=== PATIENT | female | born 1980 | race Caucasian/White ===

== ENCOUNTER 2017-04-26 14:35 | Observation (INO) ==
[2017-04-26] MEDS ORDERED: Lidocaine 1% 20 ML MDV ID ONE (15:44)
--- NOTE | 2017-04-26 15:47 | Emergency Department Note ---
Disposition Clinical Impression: Martha-rectal abscess Urinary tract infection Qualifiers: Urinary tract infection type: acute cystitis Hematuria presence: without hematuria Qualified Code(s): N30.00 - Acute cystitis without hematuria Disposition: Admitted As Inpatient Condition: Fair Referrals: NONE,PCP [Non-Partnered Physician] - Forms: ED Satisfaction Letter Time of Disposition: 17:39 Skin/Abscess/FB HPI Chief complaint: ED Skin/Abscess/Foreign Body Stated complaint: Abscess Time Seen by Provider: 04/26/17 15:36 Source: patient Limitations: no limitations Nursing Notes Reviewed: Yes Vital Signs Reviewed: Yes HPI Narrative: Alert and oriented and nontoxic-appearing 36-year-old female presents for evaluation of a "perirectal abscess". The patient states that the area began 5 days ago and has gradually worsened since. She states a history of multiple perirectal abscesses in the past requiring incision and drainage. She did see her primary care provider at the [facility] several days ago which prescribed her ciprofloxacin for this and directed her to use warm sitz baths for symptomatic relief. The patient states that 2 days after beginning the sitz baths, she developed dysuria, urinary urgency, and urinary frequency. She complains of being nauseated and having some subjective chills but denies any outright fevers, or vomiting. She denies any abdominal pain, blood in urine, or blood in the stool. Pt Subjective Complaint: abscess/boil Onset (ago): day(s) (5) Tetanus Up to Date: yes Location: buttocks Severity: severe Severity scale (1-10): 7 Quality: sharp Consistency: Worsening Improves with: none Worsens with: movement Associated symptoms: Reports: chills, nausea. Denies: fever, vomiting, malaise Previous Rx's Medication Instructions Recorded Ciprofloxacin [Cipro] 500 mg PO BID #14 tablet 03/12/17 Fluconazole [Diflucan] 150 mg PO DAILY #1 tab 03/12/17 predniSONE [PredniSONE] 20 mg PO BID #6 tablet 03/12/17 Allergies Allergy/AdvReac Type Severity Reaction Status Date / Time sulfamethoxazole AdvReac Hives Verified 03/12/17 18:00 [From Bactrim] trimethoprim [From Bactrim] AdvReac Hives Verified 03/12/17 18:00 All systems ED: reviewed and negative except as stated. Constitutional: Reports: as per HPI, chills. Denies: fever, weakness, weight change Eyes: Denies: eye pain, eye discharge, vision change ENT ED: Denies: ear pain, throat pain, dental pain, hearing loss, epistaxis, congestion, dysphagia Cardiovascular: Denies: chest pain, palpitations, dyspnea on exertion, edema, syncope Respiratory: Denies: cough, dyspnea, wheezes, hemoptysis, stridor Gastrointestinal: Reports: as per HPI, nausea. Denies: abdominal pain, vomiting , diarrhea, constipation, hematemesis, melena, hematochezia Genitourinary: Reports: as per HPI, urgency, dysuria, frequency. Denies: hematuria, discharge Musculoskeletal: Denies: back pain, neck pain, arthralgia, myalgia Integumentary: Reports: as per HPI, other ("Perirectal abscess"). Denies: rash , abrasion, lesions Neurological: Denies: headache, weakness, numbness, paresthesias, confusion, abnormal gait, vertigo Psychiatric: Denies: anxiety, depression, suicidal thoughts, homicidal thoughts , auditory hallucinations, visual hallucinations Endocrine: Denies: fatigue Hematological/Lymphatic: Denies: easy bleeding, easy bruising Allergic/Immunologic: Denies: facial swelling, urticaria Past Medical History - Past Medical History Attestation: Yes The following information was validated with the patient. Source: patient, nursing notes reviewed Medical history: Reports: hypertension Surgical history: Reports: other, appendectomy Psychiatric history: Reports: anxiety [employer] history: Reports: bilateral tubal ligation - Social History Smoking Status: Current every day smoker Smokeless Tobacco Status: No Alcohol use: Reports: none Drug use: Reports: none Physical Exam - General Limitations: no limitations General appearance: alert, in no apparent distress - Head Head exam: atraumatic, normocephalic, normal inspection - Eye Eye exam: Present: normal appearance, PERRL, EOMI. Absent: nystagmus - ENT ENT exam: mucous membranes moist - Neck Neck exam: Present: normal inspection, full ROM, trachea midline - Chest Chest inspection: Present: normal inspection, symmetric chest wall rise - Respiratory Respiratory exam: Present: normal lung sounds bilaterally. Absent: respiratory distress, wheezes, stridor, accessory muscle use, prolonged expiratory phase - Cardiovascular Cardiovascular exam: Present: regular rate, normal rhythm, normal heart sounds - Abdominal Exam Abdominal exam: Present: soft, Non-Tender, normal bowel sounds - Extremities Exam Extremities exam: Present: normal inspection, full ROM. Absent: tenderness, pedal edema - Back Exam Back exam: Present: normal inspection, full ROM. Absent: tenderness, CVA tenderness (R), CVA tenderness (L) - Neurological Exam Neurological exam: Present: alert, oriented X3 - Psychiatric Psychiatric exam: Present: normal affect, normal mood - Skin Skin exam: Present: warm, dry, intact, normal color, other - Expanded Skin Exam Type of lesion: Present: abscess 1 - Right-sided perirectal induration that measures approximately 2.5 cm x 2.5 cm without overlying cellulitis. No spontaneous drainage or discharge. Course Course Narrative: I have discussed this patient's case with Dr. Odell. Dr. Odell agrees with his plan. 1820: I spoke with Dr. Garvin, general surgeon teletypesetter monitor. Dr. Sosa requested patient be administered Zosyn and admitted to her service overnight with a nothing by mouth status so that she can take the patient to the OR tomorrow morning. I discussed this plan with the patient and the patient verbalizes understanding. Vital Signs Temperature 97.8 F 04/26/17 15:30 Pulse Rate 92 04/26/17 15:30 Respiratory Rate 16 04/26/17 15:30 Blood Pressure 138/95 04/26/17 15:30 O2 Sat by Pulse Oximetry 98 04/26/17 15:30 Temperature 97.8 F 04/26/17 15:30 Pulse Rate 86 04/26/17 18:03 Respiratory Rate 16 04/26/17 18:03 Blood Pressure 154/97 04/26/17 18:03 O2 Sat by Pulse Oximetry 97 04/26/17 18:03 Oxygen Delivery Oxygen Delivery Room Air Skin/Abscess/Foreign Body - Medical Records Medical records reviewed: Yes I reviewed the patient's medical records. - Lab Data Lab results reviewed: Yes I reviewed the patient's lab results. Lab results narrative: Laboratory Last Values WBC 14.9 K/mcL (4.3-11.1) H 04/26/17 16:54 RBC 4.36 M/mcL (3.82-4.97) 04/26/17 16:54 Hgb 13.8 g/dL (11.5-15.4) 04/26/17 16:54 Hct 39.4 % (35.3-44.9) 04/26/17 16:54 MCV 90.4 fL (83.0-100.0) 04/26/17 16:54 MCH 31.7 pg (28.0-33.3) 04/26/17 16:54 MCHC 35.0 g/dL (31.6-35.5) 04/26/17 16:54 RDW 13.5 % (11.5-14.5) 04/26/17 16:54 Plt Count 254 K/mcL (140-400) 04/26/17 16:54 MPV 10.4 fL (9.4-12.4) 04/26/17 16:54 Immature Gran % 0.3 % (0-4) 04/26/17 16:54 Seg Neutrophils % 71.5 % 04/26/17 16:54 Lymphocytes % 19.6 % 04/26/17 16:54 Monocytes % 6.9 % 04/26/17 16:54 Eosinophils % 1.4 % 04/26/17 16:54 Basophils % 0.3 % 04/26/17 16:54 Neutrophils # 10.6 K/mcL (1.6-8.9) H 04/26/17 16:54 Lymphocytes # 2.9 K/mcL (0.6-4.6) 04/26/17 16:54 Monocytes # 1.0 K/mcL (0.0-1.3) 04/26/17 16:54 Eosinophils # 0.2 K/mcL (0.0-0.6) 04/26/17 16:54 Basophils # 0.0 K/mcL (0.0-0.2) 04/26/17 16:54 ESR 18 mm/hr (0-15) H 04/26/17 16:54 Sodium 136 mEq/L (136-145) 04/26/17 16:54 Potassium 3.8 mEq/L (3.5-4.5) 04/26/17 16:54 Chloride 108 mEq/L (98-109) 04/26/17 16:54 Carbon Dioxide 21 mEq/L (19-29) 04/26/17 16:54 BUN 13 mg/dL (7-20) 04/26/17 16:54 Creatinine 0.73 mg/dL (0.57-1.11) 04/26/17 16:54 Est GFR ( Amer) > 60 (> 60) 04/26/17 16:54 Est GFR (Non-Af Amer) > 60 (> 60) 04/26/17 16:54 BUN/Creatinine Ratio 18 (6-26) 04/26/17 16:54 Glucose 116 mg/dL (70-99) H 04/26/17 16:54 Calculated Osmolality 283 (280-300) 04/26/17 16:54 Calcium 9.3 mg/dL (8.6-10.8) 04/26/17 16:54 C-Reactive Protein 30 mg/L (Less than 5) H 04/26/17 16:54 Urine Color Yellow (Yellow) 04/26/17 15:51 Urine Clarity Cloudy (Clear) A 04/26/17 15:51 Urine pH 6.5 pH Units (5.0-8.0) 04/26/17 15:51 Ur Specific [place] 1.023 (1.010-1.025) 04/26/17 15:51 Urine Protein Negative mg/dL (Neg-Trace) 04/26/17 15:51 Urine Glucose (UA) Normal mg/dL (Normal) 04/26/17 15:51 Urine Ketones Negative mg/dL (Negative) 04/26/17 15:51 Urine Blood Negative (Negative) 04/26/17 15:51 Urine Nitrite Negative (Negative) 04/26/17 15:51 Urine Bilirubin Negative (Negative) 04/26/17 15:51 Urine Urobilinogen Normal mg/dL (Normal) 04/26/17 15:51 Ur Leukocyte Esterase Large (Negative) H 04/26/17 15:51 Urine Microscopic RBC 5-15 per hpf (0-3) H 04/26/17 15:51 Urine Microscopic WBC TNTC per hpf (0-3) H 04/26/17 15:51 Ur Squamous Epith Cells Many per lpf (None-Few) H 04/26/17 15:51 Urine Bacteria Moderate per hpf (None-Few) H 04/26/17 15:51 Hyaline Casts None Seen per lpf (None-Few) 04/26/17 15:51 Ur Culture Indicated? YES (NO) A 04/26/17 15:51 Urine Test Negative (Negative) 04/26/17 15:51 Result diagrams: 04/26/17 16:54 04/26/17 16:54 Lab Results 04/26/17 04/26/17 04/26/17 Range/Units 15:51 15:51 16:54 WBC 14.9 H (4.3-11.1) K/mcL RBC 4.36 (3.82-4.97) M/mcL Hgb 13.8 (11.5-15.4) g/dL Hct 39.4 (35.3-44.9) % MCV 90.4 (83.0-100.0) fL MCH 31.7 (28.0-33.3) pg MCHC 35.0 (31.6-35.5) g/dL RDW 13.5 (11.5-14.5) % Plt Count 254 (140-400) K/mcL MPV 10.4 (9.4-12.4) fL Immature Gran % 0.3 (0-4) % Seg Neutrophils % 71.5 % Lymphocytes % 19.6 % Monocytes % 6.9 % Eosinophils % 1.4 % Basophils % 0.3 % Neutrophils # 10.6 H (1.6-8.9) K/mcL Lymphocytes # 2.9 (0.6-4.6) K/mcL Monocytes # 1.0 (0.0-1.3) K/mcL Eosinophils # 0.2 (0.0-0.6) K/mcL Basophils # 0.0 (0.0-0.2) K/mcL ESR (0-15) mm/hr Sodium (136-145) mEq/L Potassium (3.5-4.5) mEq/L Chloride (98-109) mEq/L Carbon Dioxide (19-29) mEq/L BUN (7-20) mg/dL Creatinine (0.57-1.11) mg/dL Est GFR ( Amer) (> 60) Est GFR (Non-Af Amer) (> 60) BUN/Creatinine Ratio (6-26) Glucose (70-99) mg/dL Calculated Osmolality (280-300) Calcium (8.6-10.8) mg/dL C-Reactive Protein (Less than 5) mg/L Urine Color Yellow (Yellow) Urine Clarity Cloudy A (Clear) Urine pH 6.5 (5.0-8.0) pH Units Ur Specific [place] 1.023 (1.010-1.025) Urine Protein Negative (Neg-Trace) mg/dL Urine Glucose (UA) Normal (Normal) mg/dL Urine Ketones Negative (Negative) mg/dL Urine Blood Negative (Negative) Urine Nitrite Negative (Negative) Urine Bilirubin Negative (Negative) Urine Urobilinogen Normal (Normal) mg/dL Ur Leukocyte Esterase Large H (Negative) Urine Microscopic RBC 5-15 H (0-3) per hpf Urine Microscopic WBC TNTC H (0-3) per hpf Ur Squamous Epith Cells Many H (None-Few) per lpf Urine Bacteria Moderate H (None-Few) per hpf Hyaline Casts None Seen (None-Few) per lpf Ur Culture Indicated? YES A (NO) Urine Test Negative (Negative) 04/26/17 04/26/17 Range/Units 16:54 16:54 WBC (4.3-11.1) K/mcL RBC (3.82-4.97) M/mcL Hgb (11.5-15.4) g/dL Hct (35.3-44.9) % MCV (83.0-100.0) fL MCH (28.0-33.3) pg MCHC (31.6-35.5) g/dL RDW (11.5-14.5) % Plt Count (140-400) K/mcL MPV (9.4-12.4) fL Immature Gran % (0-4) % Seg Neutrophils % % Lymphocytes % % Monocytes % % Eosinophils % % Basophils % % Neutrophils # (1.6-8.9) K/mcL Lymphocytes # (0.6-4.6) K/mcL Monocytes # (0.0-1.3) K/mcL Eosinophils # (0.0-0.6) K/mcL Basophils # (0.0-0.2) K/mcL ESR 18 H (0-15) mm/hr Sodium 136 (136-145) mEq/L Potassium 3.8 (3.5-4.5) mEq/L Chloride 108 (98-109) mEq/L Carbon Dioxide 21 (19-29) mEq/L BUN 13 (7-20) mg/dL Creatinine 0.73 (0.57-1.11) mg/dL Est GFR ( Amer) > 60 (> 60) Est GFR (Non-Af Amer) > 60 (> 60) BUN/Creatinine Ratio 18 (6-26) Glucose 116 H (70-99) mg/dL Calculated Osmolality 283 (280-300) Calcium 9.3 (8.6-10.8) mg/dL C-Reactive Protein 30 H (Less than 5) mg/L Urine Color (Yellow) Urine Clarity (Clear) Urine pH (5.0-8.0) pH Units Ur Specific [place] (1.010-1.025) Urine Protein (Neg-Trace) mg/dL Urine Glucose (UA) (Normal) mg/dL Urine Ketones (Negative) mg/dL Urine Blood (Negative) Urine Nitrite (Negative) Urine Bilirubin (Negative) Urine Urobilinogen (Normal) mg/dL Ur Leukocyte Esterase (Negative) Urine Microscopic RBC (0-3) per hpf Urine Microscopic WBC (0-3) per hpf Ur Squamous Epith Cells (None-Few) per lpf Urine Bacteria (None-Few) per hpf Hyaline Casts (None-Few) per lpf Ur Culture Indicated? (NO) Urine Test (Negative) - Radiology Data Radiology results reviewed: Yes I reviewed the patient's radiology results. Abdomen/Pelvis CT 04/26/17 15:52 IMPRESSION: Small right inferior perirectal/perianal abscess. D/ / Geovani Ecsobedo MD / Geovani Escobedo MD Interpreting Provider: Geovani Escobedo MD [facility] - [facility] Situation: Demographics, MOA Background: Presenting Complaint, Relevant PMH, Meds, & Allergies Assessment: Vital Signs, Course and respsone to treatment, Exam Concerns, Patient/Family Expectation, Pertinant Lab Results, Outstanding Labs Recommendation: Barrier(s) to disposition, Recommendation based on pending studies, treatments, or consults [facility].B.A.[facility] Report Given to: JUAN Roland Repor Time: 18:00
[2017-04-26 16:02] LABS: Bilirubin,Urine Negative (Negative); Blood,Urine Negative (Negative); Clarity,Urine Cloudy (Clear); Color,Urine Yellow (Yellow); Glucose,Urine (UA) Normal (Normal); Ketones,Urine Negative (Negative); Leukocyte Esterase,Urine Large (Negative); Nitrite,Urine Negative (Negative); PH,Urine 6.5 pH Units (5.0-8.0); Protein,Urine Negative (Neg-Trace); Specific Gravity,Urine 1.023 (1.010-1.025); Urobilinogen,Urine Normal (Normal)
[2017-04-26 16:04] LABS: Bacteria,Urine Moderate per hpf (None-Few); Hyaline Casts,Urine None Seen per lpf (None-Few); Squamous Epithelial Cell,Urine Many per lpf (None-Few); WBC,Urine TNTC per hpf (0-3)
[2017-04-26] MEDS ORDERED: Ondansetron 4 MG/2 ML VIAL IVP ONE (16:46)
[2017-04-26] MEDS ORDERED: *HR* Morphine 2 MG/ML SYRINGE IVP PRN (16:46)
[2017-04-26 17:04] LABS: Basophils % 0.3 %; Eosinophils # 0.2 K/mcL (0.0-0.6); Eosinophils % 1.4 %; Hematocrit 39.4 % (35.3-44.9); Hemoglobin 13.8 g/dL (11.5-15.4); Immature Granulocytes % 0.3 % (0-4); Lymphocytes # 2.9 K/mcL (0.6-4.6); Lymphocytes % 19.6 %; Mean Corpuscular Hemoglobin 31.7 pg (28.0-33.3); Mean Corpuscular Volume 90.4 fL (83.0-100.0); Mean Platelet Volume 10.4 fL (9.4-12.4); Monocytes % 6.9 %; Neutrophils # 10.6 K/mcL (1.6-8.9); Platelet Count 254 K/mcL (140-400); Red Blood Count 4.36 M/mcL (3.82-4.97); Red Cell Distribution Width 13.5 % (11.5-14.5); Segmented Neutrophils % 71.5 %
[2017-04-26 17:15] LABS: BUN/Creatinine Ratio 18 (6-26); Blood Urea Nitrogen 13 mg/dL (7-20); C-Reactive Protein 30 mg/L (Less than 5); Calcium 9.3 mg/dL (8.6-10.8); Carbon Dioxide 21 mEq/L (19-29); Chloride 108 mEq/L (98-109); Glucose 116 mg/dL (70-99); Osmolality,Calculated 283 (280-300); Potassium 3.8 mEq/L (3.5-4.5); Sodium 136 mEq/L (136-145); eGFR For African Americans > 60 (> 60); eGFR For Non-African Americans > 60 (> 60)
[2017-04-26] MEDS ORDERED: *HR* HYDROmorphone (PF) 1 MG/ML SYRINGE IVP ONE (17:54)
[2017-04-26] MEDS ORDERED: Piperacillin/Tazobactam 3.375 GM in D5% in Water (Mini-Bag+) 100 ML IVPB ONE (18:17)
[2017-04-26] MEDS ORDERED: Naloxone 0.4 MG/ML INJ IVP PRN (19:12)
[2017-04-26] MEDS ORDERED: Ondansetron 4 MG/2 ML VIAL IVP PRN (19:12)
[2017-04-26] MEDS ORDERED: *HR* Promethazine 25 MG/ML VIAL IVP PRN (19:12)
[2017-04-26] MEDS ORDERED: *HR* Metoprolol 5 MG/5 ML VIAL IVP PRN (19:12)
[2017-04-26] MEDS: *HR* OxyCODONE/APAP 5/325 TABLET PO PRN (22:30)
[2017-04-26] MEDS: 0.9 % Sodium Chloride 1,000 ML IVC SCH (22:31)
[2017-04-26] MEDS: Piperacillin/Tazobactam 3.375 GM in D5% in Water (Mini-Bag+) 100 ML IVPB SCH (23:42)
[2017-04-26] MEDS: *HR* HYDROmorphone (PF) 1 MG/ML SYRINGE IVP PRN (23:44)
[2017-04-27] MEDS: *HR* HYDROmorphone (PF) 1 MG/ML SYRINGE IVP PRN ×5 (04:57→22:31)
[2017-04-27 04:59] LABS: Basophils % 0.3 %; Eosinophils # 0.2 K/mcL (0.0-0.6); Eosinophils % 1.6 %; Hematocrit 34.7 % (35.3-44.9); Immature Granulocytes % 0.2 % (0-4); Lymphocytes # 2.8 K/mcL (0.6-4.6); Lymphocytes % 22.7 %; Mean Corpuscular HGB Conc 34.3 g/dL (31.6-35.5); Mean Corpuscular Hemoglobin 31.4 pg (28.0-33.3); Mean Corpuscular Volume 91.6 fL (83.0-100.0); Mean Platelet Volume 10.6 fL (9.4-12.4); Monocytes # 0.9 K/mcL (0.0-1.3); Monocytes % 7.3 %; Neutrophils # 8.2 K/mcL (1.6-8.9); Platelet Count 228 K/mcL (140-400); Red Blood Count 3.79 M/mcL (3.82-4.97); Red Cell Distribution Width 13.6 % (11.5-14.5); Segmented Neutrophils % 67.9 %
[2017-04-27 05:02] LABS: BUN/Creatinine Ratio 16 (6-26); Blood Urea Nitrogen 11 mg/dL (7-20); Calcium 8.5 mg/dL (8.6-10.8); Carbon Dioxide 23 mEq/L (19-29); Chloride 109 mEq/L (98-109); Glucose 123 mg/dL (70-99); Hemoglobin 11.9 g/dL (11.5-15.4); Osmolality,Calculated 289 (280-300); Potassium 3.8 mEq/L (3.5-4.5); Sodium 139 mEq/L (136-145); eGFR For African Americans > 60 (> 60); eGFR For Non-African Americans > 60 (> 60)
[2017-04-27] MEDS: *HR* OxyCODONE/APAP 5/325 TABLET PO PRN ×2 (05:56→21:05)
--- NOTE | 2017-04-27 09:10 | General Surg History&Physical ---
<Ramesh Reeves - Last Filed: 04/27/17 12:32> Date of Encounter: 04/27/17 Time of Encounter: 08:30 Assessment and Plan (1) Martha-rectal abscess Current Visit: Yes Status: Acute 36 yo F with history of multiple episodes of perianal abscess, HTN, hyperlipidemia, obesity, presented for right perianal abscess. Scheduled for add-on for Incision and Drainage this evening with Dr. Sosa. Continue NPO. Supportive care. Pain management. PPI for nausea and vomiting. Continue Zosyn for prophylaxis. Monitor with a.m. labs. The assessment and plan as outlined above was discussed with the patient and/or family members who expressed understanding and agreement. All questions were answered. (2) Urinary tract infection Current Visit: Yes Status: Acute UA is cloudy, + leukocyte esterase. Pending urine culture. The assessment and plan as outlined above was discussed with the patient and/or family members who expressed understanding and agreement. All questions were answered. Qualifiers: Urinary tract infection type: acute cystitis Hematuria presence: without hematuria Qualified Code(s): N30.00 - Acute cystitis without hematuria (3) Leukocytosis Current Visit: Yes Status: Acute WBC trending down: 12.1 < 14.9 Leukocytosis is most-likely due to urinary tract infection. Urine Culture pending. Continue to monitor with a.m. labs Qualifiers: Qualified Code(s): D72.829 - Elevated white blood cell count, unspecified History of Present Illness Chief complaint: Right perianal abscess HPI: Ms. Chew is a 36 year old female with PMH of HTN, Hyperlipidemia, depression, and history of multiple perianal abscess, surgical history of emergent appendectomy and bilateral tubal ligation presented yesterday evening with right perianal abscess x 5 days. She first noticed the abscess 5 days ago and went to her PCP, which prescribed her ciprofloxacin and sitz baths. She reports increasing urinary urgency and dysuria with the treatment without symptomatic relief. She came to the emergency due to nausea and chills, but reports no vomiting or fever. Patient reports that the abscess has gradually grown in size since Monday. Two days after starting sitz baths, she developed dysuria, urinary urgency, and urinary frequency. CT abdomen reveals small right inferior perirectal/perianal abscess. Urinalysis indicates UTI; urine culture is pending. Her vital signs are normal and stable, but patient has leukocytosis with WBC 12.1 < 14.9. She is currently on Zosyn day#1. The patient is scheduled for incision and drainage by Dr. Sosa this evening. Past Med Surg Social Fam HX - Past Medical History Medical history: hypertension Psychiatric history: anxiety - Past Surgical History Surgical History: appendectomy, HONEY/BSO - Social History Smoking Status: Current every day smoker Packs per day: 1 Smokeless Tobacco Status: No Alcohol use: none Drug use: none Medications and Allergies No Known Home Drugs 04/26/17 [History] 3 Allergy/AdvReac Type Severity Reaction Status Date / Time sulfamethoxazole AdvReac Hives Verified 03/12/17 18:00 [From Bactrim] trimethoprim [From Bactrim] AdvReac Hives Verified 03/12/17 18:00 Review of Systems All systems PM: A 10-system review of systems was performed and is negative for pertinent findings except as documented above in the HPI. - Constitutional no anorexia, no chills - EENT Nose, mouth and throat: no dizziness, no sore throat - Cardiovascular no chest pain, no diaphoresis, no dyspnea, no edema, no palpitations, no radiating pain - Gastrointestinal nausea, no abdominal pain, no bloating, no change in bowel habits, no constipation, no hematochezia, no loose stools, no melena, no vomiting - Genitourinary Genitourinary: no difficulty voiding, no hematuria - Musculoskeletal no numbness, no tingling - Neurological no dizziness, no memory loss, no numbness, no paresthesias, no weakness - Psychiatric no confusion, no memory loss - Endocrine no fatigue, no palpitations - Hematologic/Lymphatic no easy bleeding, no easy bruising General Surgery Exam Initial Vital Signs Temp Pulse Resp BP Pulse Ox 97.8 F 92 16 138/95 98 04/26/17 15:30 04/26/17 15:30 04/26/17 15:30 04/26/17 15:30 04/26/17 15:30 - General physical appearance well developed, well nourished, no distress - Eyes normal ocular movement - ENT atraumatic, normocephalic, CN 2-12 grossly intact - Neck no masses, trachea midline - Respiratory normal expansion, normal respiratory effort, clear to auscultation - Cardiovascular Cardiovascular exam: Present: RRR, no murmurs/rubs/gallops - Abdomen Abdomen general surgery: Present: bowel sounds present, soft, non tender - Integumentary Integumentary general surgery: Present: warm and dry, no abnormal pigmentation - Neurologic Present: CN 2-12 grossly intact, normal coordination, normal sensation - Musculoskeletal Present: normal posture - Psychiatric Psychiatric general surgery: Present: speech is normal, memory intact Results - Labs 04/27/17 03:58 04/27/17 03:58 Abnormal lab results WBC 12.1 K/mcL (4.3-11.1) H 04/27/17 03:58 RBC 3.79 M/mcL (3.82-4.97) L 04/27/17 03:58 Hct 34.7 % (35.3-44.9) L 04/27/17 03:58 ESR 18 mm/hr (0-15) H 04/26/17 16:54 Glucose 123 mg/dL (70-99) H 04/27/17 03:58 Calcium 8.5 mg/dL (8.6-10.8) L 04/27/17 03:58 C-Reactive Protein 30 mg/L (Less than 5) H 04/26/17 16:54 Urine Clarity Cloudy (Clear) A 04/26/17 15:51 Ur Leukocyte Esterase Large (Negative) H 04/26/17 15:51 Urine Microscopic RBC 5-15 per hpf (0-3) H 04/26/17 15:51 Urine Microscopic WBC TNTC per hpf (0-3) H 04/26/17 15:51 Ur Squamous Epith Cells Many per lpf (None-Few) H 04/26/17 15:51 Urine Bacteria Moderate per hpf (None-Few) H 04/26/17 15:51 Ur Culture Indicated? YES (NO) A 04/26/17 15:51 Diabetes panel 04/27/17 Range/Units 03:58 Sodium 139 (136-145) mEq/L Potassium 3.8 (3.5-4.5) mEq/L Chloride 109 (98-109) mEq/L Carbon Dioxide 23 (19-29) mEq/L BUN 11 (7-20) mg/dL Creatinine 0.69 (0.57-1.11) mg/dL Glucose 123 H (70-99) mg/dL Calcium 8.5 L (8.6-10.8) mg/dL Calcium panel 04/27/17 Range/Units 03:58 Calcium 8.5 L (8.6-10.8) mg/dL Pituitary panel 04/27/17 Range/Units 03:58 Sodium 139 (136-145) mEq/L Potassium 3.8 (3.5-4.5) mEq/L Chloride 109 (98-109) mEq/L Carbon Dioxide 23 (19-29) mEq/L BUN 11 (7-20) mg/dL Creatinine 0.69 (0.57-1.11) mg/dL Glucose 123 H (70-99) mg/dL Calcium 8.5 L (8.6-10.8) mg/dL Adrenal panel 04/27/17 Range/Units 03:58 Sodium 139 (136-145) mEq/L Potassium 3.8 (3.5-4.5) mEq/L Chloride 109 (98-109) mEq/L Carbon Dioxide 23 (19-29) mEq/L BUN 11 (7-20) mg/dL Creatinine 0.69 (0.57-1.11) mg/dL Glucose 123 H (70-99) mg/dL Calcium 8.5 L (8.6-10.8) mg/dL All other labs normal. <Angelia Sosa - Last Filed: 04/27/17 16:12> Date of Encounter: 04/27/17 Assessment and Plan (1) Martha-rectal abscess Current Visit: Yes Status: Acute The assessment and plan as outlined above was discussed with the patient and/or family members who expressed understanding and agreement. All questions were answered. discussed with patient that we will plan Incision and drainage of the area in the OR, continue abx npo ivf hydration prn pain control (2) Urinary tract infection Current Visit: Yes Status: Acute The assessment and plan as outlined above was discussed with the patient and/or family members who expressed understanding and agreement. All questions were answered. continue zosyn, culture pending Qualifiers: Urinary tract infection type: acute cystitis Hematuria presence: without hematuria Qualified Code(s): N30.00 - Acute cystitis without hematuria (3) Leukocytosis Current Visit: Yes Status: Acute The assessment and plan as outlined above was discussed with the patient and/or family members who expressed understanding and agreement. All questions were answered. trend wbc, continue abx Qualifiers: Leukocytosis type: unspecified Qualified Code(s): D72.829 - Elevated white blood cell count, unspecified (4) HTN (hypertension) Current Visit: Yes Status: Chronic The assessment and plan as outlined above was discussed with the patient and/or family members who expressed understanding and agreement. All questions were answered. on scheduled lopressor, continue. normotensive Qualifiers: Hypertension type: essential hypertension Qualified Code(s): I10 - Essential (primary) hypertension History of Present Illness HPI: Ms. Chew is a 36 year old female with a longstanding history of previous perirectal abscesses and I/D's. She started having symptoms ~5 days ago with pain and swelling. She tried sitz baths and po abx - cipro. Area slowly enlarging over time. She is complaining of swelling of the right gluteal area which started last night. She has had multiple episodes of perirectal abscesses she thinks are always on the right side. She has had multiple I/D's by ER's or the area with open on its own after sitz baths and spontaneously drain. She is complaining of right groin pain as well. Past Med Surg Social Fam HX - Past Medical History Source: patient Medical history: hyperlipidemia, hypertension, other Psychiatric history: anxiety (multiple perirectal abscesses), depression - Past Surgical History Surgical History: other (hx cardiac cath) Review of Systems All systems PM: reviewed and no additional remarkable complaints except as stated All systems PM: A 10-system review of systems was performed and is negative for pertinent findings except as documented above in the HPI. General Surgery Exam Initial Vital Signs Temp Pulse Resp BP Pulse Ox 97.8 F 92 16 138/95 98 04/26/17 15:30 04/26/17 15:30 04/26/17 15:30 04/26/17 15:30 04/26/17 15:30 - General physical appearance well developed, well nourished, no distress - Eyes PERRL, normal ocular movement - ENT normal mucosa, normocephalic - Neck trachea midline - Respiratory normal expansion, normal respiratory effort - Cardiovascular Cardiovascular exam: Present: RRR - Rectum Rectum: Present: other (right buttock edematous and slightly erythematous, no obvious area of fluctuance at right perianal area, is exquisitely tender) - Neurologic Present: CN 2-12 grossly intact, normal coordination - Musculoskeletal Present: normal posture - Psychiatric Psychiatric general surgery: Present: A&Ox3, speech is normal Results - Labs 04/27/17 03:58 04/27/17 03:58 Abnormal lab results WBC 12.1 K/mcL (4.3-11.1) H 04/27/17 03:58 RBC 3.79 M/mcL (3.82-4.97) L 04/27/17 03:58 Hct 34.7 % (35.3-44.9) L 04/27/17 03:58 ESR 18 mm/hr (0-15) H 04/26/17 16:54 Glucose 123 mg/dL (70-99) H 04/27/17 03:58 POC Glucose 127 (58-89) H 04/27/17 12:16 Calcium 8.5 mg/dL (8.6-10.8) L 04/27/17 03:58 C-Reactive Protein 30 mg/L (Less than 5) H 04/26/17 16:54 Urine Clarity Cloudy (Clear) A 04/26/17 15:51 Ur Leukocyte Esterase Large (Negative) H 04/26/17 15:51 Urine Microscopic RBC 5-15 per hpf (0-3) H 04/26/17 15:51 Urine Microscopic WBC TNTC per hpf (0-3) H 04/26/17 15:51 Ur Squamous Epith Cells Many per lpf (None-Few) H 04/26/17 15:51 Urine Bacteria Moderate per hpf (None-Few) H 04/26/17 15:51 Ur Culture Indicated? YES (NO) A 04/26/17 15:51 Diabetes panel 04/27/17 Range/Units 03:58 Sodium 139 (136-145) mEq/L Potassium 3.8 (3.5-4.5) mEq/L Chloride 109 (98-109) mEq/L Carbon Dioxide 23 (19-29) mEq/L BUN 11 (7-20) mg/dL Creatinine 0.69 (0.57-1.11) mg/dL Glucose 123 H (70-99) mg/dL Calcium 8.5 L (8.6-10.8) mg/dL Calcium panel 04/27/17 Range/Units 03:58 Calcium 8.5 L (8.6-10.8) mg/dL Pituitary panel 04/27/17 Range/Units 03:58 Sodium 139 (136-145) mEq/L Potassium 3.8 (3.5-4.5) mEq/L Chloride 109 (98-109) mEq/L Carbon Dioxide 23 (19-29) mEq/L BUN 11 (7-20) mg/dL Creatinine 0.69 (0.57-1.11) mg/dL Glucose 123 H (70-99) mg/dL Calcium 8.5 L (8.6-10.8) mg/dL Adrenal panel 04/27/17 Range/Units 03:58 Sodium 139 (136-145) mEq/L Potassium 3.8 (3.5-4.5) mEq/L Chloride 109 (98-109) mEq/L Carbon Dioxide 23 (19-29) mEq/L BUN 11 (7-20) mg/dL Creatinine 0.69 (0.57-1.11) mg/dL Glucose 123 H (70-99) mg/dL Calcium 8.5 L (8.6-10.8) mg/dL All other labs normal. - Imaging CT scan - pelvis: report reviewed, image reviewed - Attending Attestation I examined this patient and my medical decision-making was reviewed with the Resident Physician. I agree with the documented findings, disposition and treatment plan as described except to the extent set forth below.
[2017-04-27] MEDS: Piperacillin/Tazobactam 3.375 GM in D5% in Water (Mini-Bag+) 100 ML IVPB SCH ×2 (10:07→17:40)
[2017-04-27] MEDS: 0.9 % Sodium Chloride 1,000 ML IVC SCH ×3 (10:08→21:06)
[2017-04-27] MEDS: Ipratropium/Albuterol Neb 3 ML IH SCH ×3 (11:19→15:47)
--- NOTE | 2017-04-27 15:59 | Anesthesia Evaluation PreOp ---
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 Significant HX Other Medical History: GERD Anesthesia History: No Prior Anesthetic Complications, Past Anesthesia Alcohol Use: none Drug use: none Medications and Allergies No Known Home Drugs 04/26/17 [History] 3 Allergy/AdvReac Type Severity Reaction Status Date / Time sulfamethoxazole AdvReac Hives Verified 03/12/17 18:00 [From Bactrim] trimethoprim [From Bactrim] AdvReac Hives Verified 03/12/17 18:00 - Meds/Allergy Pre-op Review Medications Reviewed: Yes Allergies Reviewed: Yes Beta Blockers on Current Med List: Yes If Beta Blockers taken, Date/Time (Last Dose taken): stopped 2 weeks ago Anesthesia Results - Labs 04/27/17 03:58 04/27/17 03:58 Laboratory Tests 10/24/16 21:11 PT 10.8 INR 1.0 APTT 29.9 Laboratory Tests 04/26/17 15:51 Urine Test Negative - Imaging EKG: report reviewed (10/24/2016 SINUS RHYTHM LOW QRS VOLTAGE IN PRECORDIAL LEADS ) Anesthesia Exam Vital Signs/O2 Sat, Most Current Temp Pulse Resp BP Pulse Ox 98.3 F 72 20 118/73 96 04/27/17 15:29 04/27/17 15:29 04/27/17 15:29 04/27/17 15:29 04/27/17 15:29 Height: 5'6''/1.68 m Weight: 199 lbs/90.3 kg NPO (# of Hours): 8 Pain Scale: 7 Pain Scale Used: Numeric (1 - 10) - HEENT Pupil (Motor): EOMI Mallampati: II Teeth: Normal (broken left lower molar) Oral Opening: Greater than 3 - TELEPHONE INTERCEPTOR OPERATOR LOC: Oriented TELEPHONE INTERCEPTOR OPERATOR Motor: Normal RUE, Normal LUE, Normal RLE, Normal LLE, Normal Face TELEPHONE INTERCEPTOR OPERATOR Sensory: Normal: RUE, LUE, RLE, LLE, Face - Cardiac Rhythm: Regular Murmur: None - Pulmonary Breath Sounds: bilateral Clear Respiratory Effort: Symmetrical Anesthesia Assess/Plan ASA Score: 2 Modified [place] Scale for Level of Consciousness: Cooperative, oriented, and tranquil Anesthetic Plan: General Monitoring Plan: Standard Monitors Recovery Plan: PACU
[2017-04-27] MEDS ORDERED: Lidocaine -MPF 2% 2 ML VIAL ONE (16:11)
[2017-04-27] MEDS ORDERED: Dexamethasone 4 MG/ML VIAL ONE (16:11)
[2017-04-27] MEDS ORDERED: *HR* Succinylcholine 200 MG/10 ML VIAL IVP ONE (16:11)
[2017-04-27] MEDS ORDERED: *HR* FentaNYL (PF) 100 MCG/2 ML VIAL ONE (16:11)
[2017-04-27] MEDS ORDERED: Ondansetron 4 MG/2 ML VIAL ONE (16:11)
[2017-04-27] MEDS ORDERED: Lidocaine -MPF 4% 5 ML AMPUL ONE (16:11)
[2017-04-27] MEDS ORDERED: *HR* Midazolam HCl 2 MG/2 ML VIAL ONE ×2 (16:11→16:38)
[2017-04-27] MEDS ORDERED: *HR* Propofol 200 MG/20 ML VIAL IVP ONE (16:11)
[2017-04-27] MEDS ORDERED: *HR* Labetalol 20 MG/4 ML SYRINGE IVP PRN (16:15)
[2017-04-27] MEDS ORDERED: *HR* HYDROmorphone (PF) 1 MG/ML SYRINGE IVP PRN (16:15)
[2017-04-27] MEDS ORDERED: Ondansetron 4 MG/2 ML VIAL IVP ONE (16:15)
[2017-04-27] MEDS ORDERED: *HR* Promethazine 25 MG/ML VIAL IVP PRN ×2 (16:15→18:05)
[2017-04-27] MEDS ORDERED: Dexamethasone 4 MG/ML VIAL IVP ONE (16:15)
[2017-04-27] MEDS ORDERED: Ketorolac 15 MG/ML VIAL IVP ONE (16:15)
[2017-04-27] MEDS ORDERED: Lidocaine Jelly 2% 30 ML JEL..ML. ONE (16:26)
--- NOTE | 2017-04-27 17:19 | Operative Note ---
Date of procedure: 04/27/17 Pre-op diagnosis: right perirectal abscess Post-op diagnosis: same Procedure: Incision and drainage right perirectal abscess Complications: none immediate Anesthesia: GETA, local Local Anesthetics: 0.5% Sensorcaine HCL SubQ (cc) (11) Surgeon: Angelia Sosa Estimated blood loss (cc): 4 Specimen: anaerobic/aerobic cultures Condition: stable Disposition: PACU Procedure in Detail: Patient was brought to the operating suite on the transport cart. Sign in was performed and everyone was in agreement. Anesthesia was induced and patient was endotracheally intubated by anesthesia without incident while on transport cart. Patient was then placed prone on the operating table with all pressure points padded by pillows and foam. The bed was flexed. Bilateral buttocks were secured with 2 inch silk tape intake been. The perianal area and bilateral buttock were prepped and draped in the usual sterile fashion with Betadine. Timeout was performed again everyone was in agreement. Digital rectal exam revealed no palpable masses in the anal canal. There was an area of fluctuance at the site of previous scars from previous 90s. Using a 5 mL syringe and a 19-gauge needle the area was aspirated and pus resulted. Aerobic and anaerobic cultures were obtained. Using an 11 blade an elliptical incision through the skin into the subcutaneous tissue was made, into the abscess cavity. Sterile Q-tips were used to break up any loculations within the cavity. The abscess cavity was irrigated with sterile saline. The wound was packed with quarter inch plain packing. 4 x 4 gauze and Medipore tape were applied as a dressing. Patient tolerated the procedure well. All lap and ensuring counts are correct the case. Patient was then placed supine on the transport cart. She was awoken by anesthesia and extubated in the OR without incident. She was taken to PACU in stable condition.
--- NOTE | 2017-04-27 18:00 | Anesthesia Evaluation Post Op ---
Date of Encounter: 04/27/17 Time of Encounter: 18:00 - Vital Signs Vital Signs: Vital Signs/O2 Sat, Most Current Temp Pulse Resp BP Pulse Ox 97.6 F 84 16 120/84 98 04/27/17 17:30 04/27/17 17:40 04/27/17 17:40 04/27/17 17:40 04/27/17 17:40 - Lungs Lungs: Clear Ascult./Percussion - Airway Airway: Non-obstructed - Cardiovascular Regular Rate - Mental Status Mental Status: Alert & Oriented, Answers Appropriately - Pain Pain Scale: 0 Pain Scale used: Numeric (1 - 10) - Nausea Vomiting Nausea Vomiting: Not Present - Hydration Hydration: Ice chips, Able to void - Discharge PostOp Status: Transfer Patient to floor
[2017-04-27] MEDS ORDERED: *HR* Metoprolol 5 MG/5 ML VIAL IVP PRN (18:05)
[2017-04-27] MEDS ORDERED: Ondansetron 4 MG/2 ML VIAL IVP PRN (18:05)
[2017-04-27] MEDS ORDERED: Naloxone 0.4 MG/ML INJ IVP PRN (18:05)
[2017-04-27] MEDS ORDERED: Nicotine 2 MG GUM BC PRN (18:24)
[2017-04-28] MEDS: Piperacillin/Tazobactam 3.375 GM in D5% in Water (Mini-Bag+) 100 ML IVPB SCH ×2 (00:12→08:00)
[2017-04-28] MEDS: *HR* HYDROmorphone (PF) 1 MG/ML SYRINGE IVP PRN ×2 (02:54→10:26)
[2017-04-28 03:08] LABS: Basophils % 0.2 %; Hematocrit 34.8 % (35.3-44.9); Hemoglobin 11.8 g/dL (11.5-15.4); Immature Granulocytes % 0.5 % (0-4); Lymphocytes # 0.8 K/mcL (0.6-4.6); Lymphocytes % 6.3 %; Mean Corpuscular HGB Conc 33.9 g/dL (31.6-35.5); Mean Corpuscular Hemoglobin 31.5 pg (28.0-33.3); Mean Corpuscular Volume 92.8 fL (83.0-100.0); Mean Platelet Volume 10.8 fL (9.4-12.4); Monocytes # 0.1 K/mcL (0.0-1.3); Monocytes % 0.9 %; Neutrophils # 11.9 K/mcL (1.6-8.9); Platelet Count 247 K/mcL (140-400); Red Blood Count 3.75 M/mcL (3.82-4.97); Red Cell Distribution Width 13.4 % (11.5-14.5); Segmented Neutrophils % 92.1 %
[2017-04-28 03:29] LABS: BUN/Creatinine Ratio 11 (6-26); Blood Urea Nitrogen 10 mg/dL (7-20); Carbon Dioxide 22 mEq/L (19-29); Chloride 108 mEq/L (98-109); Glucose 303 mg/dL (70-99); Osmolality,Calculated 296 (280-300); Potassium 4.6 mEq/L (3.5-4.5); Sodium 138 mEq/L (136-145); eGFR For African Americans > 60 (> 60); eGFR For Non-African Americans > 60 (> 60)
[2017-04-28] MEDS: 0.9 % Sodium Chloride 1,000 ML IVC SCH (08:01)
[2017-04-28] MEDS: *HR* OxyCODONE/APAP 5/325 TABLET PO PRN (08:02)
[2017-04-28 10:42] VITALS: BP 114/79
--- NOTE | 2017-04-28 10:48 | Discharge Summary ---
Date of Encounter: 04/28/17 Time of Encounter: 10:30 - Discharge Diagnosis (1) Cherry-rectal abscess Priority: Primary Status: Acute (2) Urinary tract infection Priority: Secondary Status: Acute Qualifiers: Urinary tract infection type: acute cystitis Hematuria presence: without hematuria Qualified Code(s): N30.00 - Acute cystitis without hematuria - Discharge Medications Prescriptions: Ciprofloxacin [Cipro] 500 mg PO BID #14 tablet Docusate Sodium [Colace] 100 mg PO BID PRN #30 capsule PRN Reason: Constipation HYDROcodone/Acet 5/325 mg [Gary 5-325 mg] 1 tab PO Q6H PRN #21 tab PRN Reason: Breakthrough Pain Ibuprofen 800 mg PO Q8H PRN #30 tablet PRN Reason: Pain metroNIDAZOLE [Flagyl] 500 mg PO BID #14 tablet Home Medications: Ciprofloxacin [Cipro] 500 mg PO BID #14 tablet 04/28/17 [Rx] Docusate Sodium [Colace] 100 mg PO BID PRN #30 capsule 04/28/17 [Rx] HYDROcodone/Acet 5/325 mg [Gary 5-325 mg] 1 tab PO Q6H PRN #21 tab 04/28/17 [Rx ] Ibuprofen 800 mg PO Q8H PRN #30 tablet 04/28/17 [Rx] metroNIDAZOLE [Flagyl] 500 mg PO BID #14 tablet 04/28/17 [Rx] Allergies/Adverse Reactions: 3 Allergy/AdvReac Type Severity Reaction Status Date / Time sulfamethoxazole AdvReac Hives Verified 03/12/17 18:00 [From Bactrim] trimethoprim [From Bactrim] AdvReac Hives Verified 03/12/17 18:00 General Surgery Exam Initial Vital Signs Temp Pulse Resp BP Pulse Ox 97.8 F 92 16 138/95 98 04/26/17 15:30 04/26/17 15:30 04/26/17 15:30 04/26/17 15:30 04/26/17 15:30 - General physical appearance well developed, well nourished, no distress - ENT normal mucosa, atraumatic, normocephalic - Neck trachea midline - Respiratory normal expansion, normal respiratory effort, clear to percussion, clear to auscultation - Cardiovascular Cardiovascular exam: Present: RRR, 15, 16 - Abdomen Abdomen general surgery: Present: bowel sounds present, soft, non tender - Incision Incision: Present: open (Surgical packing was removed. No purulent drainage noted. Repacked with 1/4 inch playing gauze and covered with a dry dressing) - Genitourinary Present: normal external genitalia, other (She reports feelings of itchiness in the bilateral groin folds. No evidence of Candidus noted) - Rectum Rectum: Present: no bleeding, other (See incision note above) - Integumentary Integumentary general surgery: Present: warm and dry, no abnormal pigmentation - Neurologic Present: CN 2-12 grossly intact, normal coordination, normal sensation - Musculoskeletal Present: normal gait, normal posture - Psychiatric Psychiatric general surgery: Present: appropriate, oriented to person, oriented to place, oriented to time, speech is normal, memory intact Date of admission: 04/26/17 19:00 Primary care physician: Irais Soto CNP Discharging clinician: nAgelia Olivo) - Patient Status Disposition: Home, Self-Care Condition: Fair Overall status at discharge: patient is back to baseline - Discharge Instructions Follow Up With: Irais Soto CNP [Primary Care Provider] - Angelia Sosa MD [Partnered Physician] - 05/03/17 11:05 am (May 03 at 11:05 AM) Additional Instructions: Beginning on 04/29/2017, removed dressing, remove packing, shower and then complete sitz bath soaks 4 times daily and after bowel movements. Smoking cessation is strongly encouraged as this inhibits wound healing as previously discussed. Take stool softener's while on narcotics. Take ibuprofen every 8 hours as needed for discomfort. You may take hydrocodone with acetaminophen for breakthrough pain. Do not take any extra Tylenol while taking hydrocodone with acetaminophen. Report any increase or changes in drainage, fevers, chills, or increased discomfort. Take Cipro and Flagyl twice-daily as directed. Do not drink alcohol while taking Flagyl order for 3 days after completion of Flagyl. - Diet and Activity Activity: increase activity as tolerated, resume usual activities as tolerated Diet: advance to your usual diet - Hospital Course Hospital course: Ms. Chew is a 36 year old female who presented to the emergency department on 04/26/2017 with complaints of recurrent cherry-rectal. She reports she had attempted to soak multiple times in sitz bath but had no relief. She denies fevers or chills. She denied changes in bowel habits. She was examined at bedside and no areas of fluctuance were noted amenable to a bedside I&D. She was taken to the operating room on 04/27/[address] Sosa where she underwent an incision and drainage of the Cherry-rectal abscess. Her digital rectal exam at that time did not indicate any masses or abscesses within the rectal cavity. A moderate amount of related material was retrieved during her incision and drainage and set for cultures which have not been resulted at this time. She is tolerating a regular diet, emulating without difficulty, voiding, and requests dispo. We will begin discharge planning. She will be discharged on Cipro and Flagyl twice-daily as she has an allergy to Bactrim. We will provide her with discomfort management including ibuprofen 800 mg Q8 hours and hydrocodone with acetaminophen for breakthrough pain. She is further recommended to follow-up as an outpatient with Dr. Sosa for consideration of an outpatient colonoscopy. Time spent discussing smoking cessation with patient: 3 to 10 minutes - Time Spent with Patient Total time spent providing and/or coordinating discharge services: Greater than 30 minutes Labs on day of discharge: Labs from last 24 hours 04/28/17 04/28/17 04/27/17 02:35 02:35 12:16 WBC 12.9 H RBC 3.75 L Hgb 11.8 Hct 34.8 L MCV 92.8 MCH 31.5 MCHC 33.9 RDW 13.4 Plt Count 247 MPV 10.8 Immature Gran % 0.5 Seg Neutrophils % 92.1 Lymphocytes % 6.3 Monocytes % 0.9 Eosinophils % 0.0 Basophils % 0.2 Neutrophils # 11.9 H Lymphocytes # 0.8 Monocytes # 0.1 Eosinophils # 0.0 Basophils # 0.0 Sodium 138 Potassium 4.6 H Chloride 108 Carbon Dioxide 22 BUN 10 Creatinine 0.89 Est GFR ( Amer) > 60 Est GFR (Non-Af Amer) > 60 BUN/Creatinine Ratio 11 Glucose 303 H POC Glucose 127 H Calculated Osmolality 296 Calcium 9.0 04/27/17 05:49 WBC RBC Hgb Hct MCV MCH MCHC RDW Plt Count MPV Immature Gran % Seg Neutrophils % Lymphocytes % Monocytes % Eosinophils % Basophils % Neutrophils # Lymphocytes # Monocytes # Eosinophils # Basophils # Sodium Potassium Chloride Carbon Dioxide BUN Creatinine Est GFR ( Amer) Est GFR (Non-Af Amer) BUN/Creatinine Ratio Glucose POC Glucose 126 H Calculated Osmolality Calcium
== END 2017-04-28 11:22 | disposition home or self-care (01) ==
LOC: EMEROO 14:35 → 3ANU 14:35
PROVIDERS: ADMIT Surgery; ATTEND Surgery

== ENCOUNTER 2018-03-08 21:29 | Observation (INO) ==
[2018-03-08] MEDS ORDERED: 0.9 % Sodium Chloride 1,000 ML IVC ONE (22:11)
[2018-03-08] MEDS ORDERED: *HR* OxyCODONE/APAP 5/325 TABLET PO ONE (22:11)
[2018-03-08] MEDS ORDERED: Isovue-370 500 ML INFUS..BTL IV ONE (22:12)
--- NOTE | 2018-03-08 22:22 | Emergency Department Note ---
Disposition Clinical Impression: Perirectal abscess Disposition: Admitted As Inpatient Condition: Good General Adult HPI - General Chief complaint: ED Skin/Abscess/Foreign Body Stated complaint: "Painful Cyst on Rectum" Time Seen by Provider: 03/08/18 22:02 Source: patient Limitations: no limitations Nursing Notes Reviewed: Yes Vital Signs Reviewed: Yes - History of Present Illness HPI Narrative: Patient here for evaluation of concern for infection. Patient has had parirectal abscesses that have required drainage the past. She states this has been a recurrent problem in this feels like her previous abscesses. Patient states that she has had several days pain home. She has tried conservative management and failed. Patient's also failed [id number] medications. She states that pain is worse with walking. Significant tenderness. Pain with defecation. Patient has not had any specific fevers but describes chills as well as weakness and fatigue. Patient has decreased appetite. Lower abdominal pain without significant tenderness. We will further investigate with imaging as well as blood work. Pain Scale: 10 - Related Data Previous Rx's Medication Instructions Recorded Ciprofloxacin [Cipro] 500 mg PO BID #14 tablet 04/28/17 Docusate Sodium [Colace] 100 mg PO BID PRN #30 capsule 04/28/17 HYDROcodone/Acet 5/325 mg [[place] 1 tab PO Q6H PRN #21 tab 04/28/17 5-325 mg] Ibuprofen 800 mg PO Q8H PRN #30 tablet 04/28/17 metroNIDAZOLE [Flagyl] 500 mg PO BID #14 tablet 04/28/17 Allergies Allergy/AdvReac Type Severity Reaction Status Date / Time sulfamethoxazole AdvReac Hives Verified 06/13/17 08:39 [From Bactrim] trimethoprim [From Bactrim] AdvReac Hives Verified 06/13/17 08:39 Review of Systems: CONSTITUTIONAL: Chills weakness and fatigue HEENT: Eyes: No visual changes. Ears, Nose, Throat: No hearing loss, difficulty talking or unable to swallow. SKIN: Abnormal lump near her rectum associated pain and tenderness CARDIOVASCULAR: No chest pain, chest pressure or chest discomfort. No palpitations or edema. RESPIRATORY: No shortness of breath, cough or sputum. GASTROINTESTINAL: Decreased appetite and nausea and lower abdominal pain GENITOURINARY: Burning with urination. NEUROLOGICAL: No headache, dizziness, syncope, paralysis, ataxia, numbness or tingling in the extremities. No change in bowel or bladder control. 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 Musculoskeletal: Calves symmetric, nontender, no palpable cord Skin: No rash, normal skin tone Neuro: Awake alert and oriented. - General Limitations: no limitations General appearance: alert, in no apparent distress Course - Reevaluation(s) Reevaluation #1: Imaging ordered secondary to the amount of pain she was in despite physical exam findings. The CAT scan shows phlegmon and early abscess. Will discuss with surgeon in regards to antibiotics and disposition. - Consultations Consultation #1: Discussed with Dr. Sosa. Patient with perirectal abscess. Patient failed outpatient buttocks in the past. Patient with high concern for pain control. Patient will be admitted for further evaluation. Vital Signs Temperature 97.6 F 03/08/18 21:32 Pulse Rate 82 03/08/18 21:32 Respiratory Rate 16 03/08/18 21:32 Blood Pressure 163/92 03/08/18 21:32 O2 Sat by Pulse Oximetry 98 03/08/18 21:32 Temperature 97.6 F 03/09/18 00:59 Pulse Rate 66 03/09/18 00:59 Respiratory Rate 14 03/09/18 00:59 Blood Pressure 117/81 03/09/18 00:59 O2 Sat by Pulse Oximetry 97 03/09/18 00:59 Oxygen Delivery Oxygen Delivery Room Air Medical Decision Making - Lab Data Result diagrams: 03/08/18 22:12 03/08/18 22:12 Lab Results 03/08/18 03/08/18 03/08/18 Range/Units 22:12 22:12 22:16 WBC 11.2 H (4.3-11.1) K/mcL RBC 4.30 (3.82-4.97) M/mcL Hgb 13.6 (11.5-15.4) g/dL Hct 38.5 (35.3-44.9) % MCV 89.5 (83.0-100.0) fL MCH 31.6 (28.0-33.3) pg MCHC 35.3 (31.6-35.5) g/dL RDW 13.0 (11.5-14.5) % Plt Count 277 (140-400) K/mcL MPV 10.2 (9.4-12.4) fL Immature Gran % 0.3 (0-4) % Seg Neutrophils % 57.9 % Lymphocytes % 33.5 % Monocytes % 6.3 % Eosinophils % 1.6 % Basophils % 0.4 % Neutrophils # 6.5 (1.6-8.9) K/mcL Lymphocytes # 3.8 (0.6-4.6) K/mcL Monocytes # 0.7 (0.0-1.3) K/mcL Eosinophils # 0.2 (0.0-0.6) K/mcL Basophils # 0.1 (0.0-0.2) K/mcL Sodium 137 (136-145) mEq/L Potassium 3.6 (3.5-5.1) mEq/L Chloride 108 H (98-107) mEq/L Carbon Dioxide 22 L (23-29) mEq/L BUN 12 (6-20) mg/dL Creatinine 0.63 (0.60-1.20) mg/dL Est GFR ( Amer) > 60 (> 60) Est GFR (Non-Af Amer) > 60 (> 60) BUN/Creatinine Ratio 19 (6-26) Glucose 126 H (70-105) mg/dL Calculated Osmolality 285 (280-300) Calcium 9.3 (8.6-10.3) mg/dL Urine Color Yellow (Yellow) Urine Clarity Clear (Clear) Urine pH 5.5 (5.0-8.0) pH Units Ur Specific [place] 1.027 H (1.010-1.025) Urine Protein Negative (Neg-Trace) mg/dL Urine Glucose (UA) Normal (Normal) mg/dL Urine Ketones Negative (Negative) mg/dL Urine Blood Negative (Negative) Urine Nitrite Negative (Negative) Urine Bilirubin Negative (Negative) Urine Urobilinogen Normal (Normal) mg/dL Ur Leukocyte Esterase Trace H (Negative) Urine Microscopic RBC 0-3 (0-3) per hpf Urine Microscopic WBC 5-15 H (0-3) per hpf Ur Squamous Epith Cells Many H (None-Few) per lpf Urine Bacteria Few (None-Few) per hpf Hyaline Casts None Seen (None-Few) per lpf Ur Culture Indicated? NO. A (NO)
[2018-03-08 22:24] LABS: Bilirubin,Urine Negative (Negative); Blood,Urine Negative (Negative); Clarity,Urine Clear (Clear); Color,Urine Yellow (Yellow); Glucose,Urine (UA) Normal (Normal); Ketones,Urine Negative (Negative); Leukocyte Esterase,Urine Trace (Negative); Nitrite,Urine Negative (Negative); PH,Urine 5.5 pH Units (5.0-8.0); Protein,Urine Negative (Neg-Trace); Specific Gravity,Urine 1.027 (1.010-1.025); Urobilinogen,Urine Normal (Normal)
[2018-03-08 22:26] LABS: Bacteria,Urine Few per hpf (None-Few); Hyaline Casts,Urine None Seen per lpf (None-Few); Squamous Epithelial Cell,Urine Many per lpf (None-Few)
[2018-03-08] MEDS ORDERED: Ondansetron 4 MG/2 ML VIAL IVP ONE (22:26)
[2018-03-08] MEDS ORDERED: Ondansetron 4 MG/2 ML VIAL ONE (22:26)
[2018-03-08 22:37] LABS: Basophils # 0.1 K/mcL (0.0-0.2); Basophils % 0.4 %; Eosinophils # 0.2 K/mcL (0.0-0.6); Eosinophils % 1.6 %; Hematocrit 38.5 % (35.3-44.9); Hemoglobin 13.6 g/dL (11.5-15.4); Immature Granulocytes % 0.3 % (0-4); Lymphocytes # 3.8 K/mcL (0.6-4.6); Lymphocytes % 33.5 %; Mean Corpuscular HGB Conc 35.3 g/dL (31.6-35.5); Mean Corpuscular Hemoglobin 31.6 pg (28.0-33.3); Mean Corpuscular Volume 89.5 fL (83.0-100.0); Mean Platelet Volume 10.2 fL (9.4-12.4); Monocytes # 0.7 K/mcL (0.0-1.3); Monocytes % 6.3 %; Neutrophils # 6.5 K/mcL (1.6-8.9); Platelet Count 277 K/mcL (140-400); Segmented Neutrophils % 57.9 %
[2018-03-08 22:43] LABS: RBC,Urine 0-3 per hpf (0-3)
[2018-03-08 22:56] LABS: BUN/Creatinine Ratio 19 (6-26); Blood Urea Nitrogen 12 mg/dL (6-20); Calcium 9.3 mg/dL (8.6-10.3); Carbon Dioxide 22 mEq/L (23-29); Chloride 108 mEq/L (98-107); Glucose 126 mg/dL (70-105); Osmolality,Calculated 285 (280-300); Potassium 3.6 mEq/L (3.5-5.1); Sodium 137 mEq/L (136-145); eGFR For African Americans > 60 (> 60); eGFR For Non-African Americans > 60 (> 60)
[2018-03-09] MEDS ORDERED: Ibuprofen 600 MG TABLET PO ONE (00:20)
[2018-03-09] MEDS ORDERED: Piperacillin/Tazobactam 3.375 GM in 0.9 % Sodium Chloride Mini Bag 100 ML IVPB ONE (00:32)
[2018-03-09] MEDS ORDERED: Ondansetron 4 MG/2 ML VIAL IVP PRN (01:20)
[2018-03-09] MEDS: OXYCODONE Oral CONC 10 MG/0.5 ML ORAL.SYG SL PRN ×5 (03:09→21:30)
[2018-03-09 05:51] LABS: Basophils % 0.4 %; Eosinophils # 0.2 K/mcL (0.0-0.6); Eosinophils % 2.1 %; Hematocrit 35.3 % (35.3-44.9); Hemoglobin 12.4 g/dL (11.5-15.4); Immature Granulocytes % 0.4 % (0-4); Lymphocytes % 35.4 %; Mean Corpuscular HGB Conc 35.1 g/dL (31.6-35.5); Mean Corpuscular Hemoglobin 31.6 pg (28.0-33.3); Mean Corpuscular Volume 90.1 fL (83.0-100.0); Mean Platelet Volume 10.2 fL (9.4-12.4); Monocytes # 0.6 K/mcL (0.0-1.3); Monocytes % 6.9 %; Neutrophils # 4.7 K/mcL (1.6-8.9); Platelet Count 248 K/mcL (140-400); Red Blood Count 3.92 M/mcL (3.82-4.97); Red Cell Distribution Width 13.1 % (11.5-14.5); Segmented Neutrophils % 54.8 %
[2018-03-09 06:04] LABS: BUN/Creatinine Ratio 17 (6-26); Blood Urea Nitrogen 11 mg/dL (6-20); Calcium 8.6 mg/dL (8.6-10.3); Carbon Dioxide 22 mEq/L (23-29); Chloride 111 mEq/L (98-107); Glucose 126 mg/dL (70-105); Osmolality,Calculated 287 (280-300); Potassium 3.8 mEq/L (3.5-5.1); Sodium 138 mEq/L (136-145); eGFR For African Americans > 60 (> 60); eGFR For Non-African Americans > 60 (> 60)
[2018-03-09] MEDS: Piperacillin/Tazobactam 3.375 GM in 0.9 % Sodium Chloride Mini Bag 100 ML IVPB SCH ×2 (08:47→16:55)
--- NOTE | 2018-03-09 09:57 | General Surg History&Physical ---
<Yohana Olivo - Last Filed: 03/09/18 13:12> Date of Encounter: 03/09/18 Time of Encounter: 07:30 Assessment and Plan (1) Cherry-rectal abscess Current Visit: Yes Status: Acute The assessment and plan as outlined above was discussed with the patient and/or family members who expressed understanding and agreement. All questions were answered. Phlegmon present. No drainable abscess. Continue IV ATBX and Sitz baths. If abscess develops we will attempt I&D Consult to GI for recurrent perirectal abscess. Patient completed a colonoscopy accordingly and pathology was negative. Concern for possible Crohn' s disease that is manifesting as recurrent abscess despite negative colonoscopy. We have asked G.I. to evaluate patient for possible further workup related. May have regular diet unless otherwise indicated per G.I. Will keep NPO until GI sees her today. NPO at midnight in case she progresses to drainable abscess (2) Urinary tract infection Current Visit: No Status: Acute The assessment and plan as outlined above was discussed with the patient and/or family members who expressed understanding and agreement. All questions were answered. Continue IV ATBX (3) Leukocytosis Current Visit: No Status: Acute The assessment and plan as outlined above was discussed with the patient and/or family members who expressed understanding and agreement. All questions were answered. Continue IV ATBX Repeat am labs will continue to monitor Qualifiers: Leukocytosis type: unspecified Qualified Code(s): D72.829 - Elevated white blood cell count, unspecified (4) HTN (hypertension) Current Visit: No Status: Chronic The assessment and plan as outlined above was discussed with the patient and/or family members who expressed understanding and agreement. All questions were answered. Qualifiers: Hypertension type: essential hypertension Qualified Code(s): I10 - Essential (primary) hypertension Past Med Surg Social Fam HX - Past Medical History Medical history: no medical history Additional medical history: heart palpitations Psychiatric history: anxiety, depression - Past Surgical History Surgical History: other Additional surgical history: ID of cherry/rectal abscess. appendectomy. tubal. tonsils - Social History Smoking Status: Current every day smoker Smokeless Tobacco Status: No Alcohol use: none Drug use: none Medications and Allergies Albuterol Sulfate [Proair Hfa] 2 puff IH Q6H PRN 03/09/18 [History] Aspirin Enteric Coated [Aspirin EC] 81 mg PO DAILY 03/09/18 [History] Beclomethasone Diprop 80mcg [Qvar 80 mcg] 1 puff IH BID 03/09/18 [History] Carvedilol [Coreg] 6.25 mg PO DAILY 03/09/18 [History] Cyclobenzaprine [Flexeril] 10 mg PO BID PRN 03/09/18 [History] Hydrochlorothiazide [Microzide] 12.5 mg PO DAILY 03/09/18 [History] Ranitidine HCl [Acid Manager Primary] 150 mg PO DAILY 03/09/18 [History] diazePAM [Valium] 2 mg PO BID 03/09/18 [History] 3 Allergy/AdvReac Type Severity Reaction Status Date / Time sulfamethoxazole AdvReac Hives Verified 03/09/18 10:19 [From Bactrim] trimethoprim [From Bactrim] AdvReac Hives Verified 03/09/18 10:19 Review of Systems All systems PM: reviewed and no additional remarkable complaints except as stated All systems PM: The remainder of the systems were reviewed and are negative General Surgery Exam Initial Vital Signs Temp Pulse Resp BP Pulse Ox 97.6 F 82 16 163/92 98 03/08/18 21:32 03/08/18 21:32 03/08/18 21:32 03/08/18 21:32 03/08/18 21:32 Results - Labs 03/09/18 05:26 03/09/18 05:26 Abnormal lab results Chloride 111 mEq/L (98-107) H 03/09/18 05:26 Carbon Dioxide 22 mEq/L (23-29) L 03/09/18 05:26 Glucose 126 mg/dL (70-105) H 03/09/18 05:26 POC Glucose 128 mg/dL (70-99) H 03/09/18 05:32 Ur Specific [place] 1.027 (1.010-1.025) H 03/08/18 22:16 Ur Leukocyte Esterase Trace (Negative) H 03/08/18 22:16 Urine Microscopic WBC 5-15 per hpf (0-3) H 03/08/18 22:16 Ur Squamous Epith Cells Many per lpf (None-Few) H 03/08/18 22:16 Ur Culture Indicated? NO. (NO) A 03/08/18 22:16 Diabetes panel 03/09/18 Range/Units 05:26 Sodium 138 (136-145) mEq/L Potassium 3.8 (3.5-5.1) mEq/L Chloride 111 H (98-107) mEq/L Carbon Dioxide 22 L (23-29) mEq/L BUN 11 (6-20) mg/dL Creatinine 0.64 (0.60-1.20) mg/dL Glucose 126 H (70-105) mg/dL Calcium 8.6 (8.6-10.3) mg/dL Calcium panel 03/09/18 Range/Units 05:26 Calcium 8.6 (8.6-10.3) mg/dL Pituitary panel 03/09/18 Range/Units 05:26 Sodium 138 (136-145) mEq/L Potassium 3.8 (3.5-5.1) mEq/L Chloride 111 H (98-107) mEq/L Carbon Dioxide 22 L (23-29) mEq/L BUN 11 (6-20) mg/dL Creatinine 0.64 (0.60-1.20) mg/dL Glucose 126 H (70-105) mg/dL Calcium 8.6 (8.6-10.3) mg/dL Adrenal panel 03/09/18 Range/Units 05:26 Sodium 138 (136-145) mEq/L Potassium 3.8 (3.5-5.1) mEq/L Chloride 111 H (98-107) mEq/L Carbon Dioxide 22 L (23-29) mEq/L BUN 11 (6-20) mg/dL Creatinine 0.64 (0.60-1.20) mg/dL Glucose 126 H (70-105) mg/dL Calcium 8.6 (8.6-10.3) mg/dL All other labs normal. <Angelia Sosa - Last Filed: 03/09/18 17:43> Date of Encounter: 03/09/18 Assessment and Plan (1) Cherry-rectal abscess Current Visit: Yes Status: Acute The assessment and plan as outlined above was discussed with the patient and/or family members who expressed understanding and agreement. All questions were answered. (2) Leukocytosis Current Visit: No Status: Acute The assessment and plan as outlined above was discussed with the patient and/or family members who expressed understanding and agreement. All questions were answered. Qualifiers: Leukocytosis type: unspecified Qualified Code(s): D72.829 - Elevated white blood cell count, unspecified (3) HTN (hypertension) Current Visit: No Status: Chronic The assessment and plan as outlined above was discussed with the patient and/or family members who expressed understanding and agreement. All questions were answered. continue home medication, monitor Qualifiers: Hypertension type: essential hypertension Qualified Code(s): I10 - Essential (primary) hypertension History of Present Illness Chief complaint: perianal pain HPI: Ms. Chew is a 37 year old female with a history of recurrent perianal/ perirectal abscesses. They usually always occur at the same spot. She started having pain several days ago and knew exactly what it was. She has no fevers, chills or night sweats. She presented to the ED and CT scan was done showing a right posterior perianal phlegmon. WBC elevated at 11.2. She has previously had a colonosocpy with random biopsies as it was a concern this was possibly a manifestation of Crohns but biopsies were negative for pathology. Past Med Surg Social Fam HX - Past Medical History Source: patient Medical history: asthma, GERD, hypertension, other (recurrent perianal/ perirectal abscesses) - Past Surgical History Surgical History: other (colonscopy) - Social History Smoking Status: Current every day smoker Smokeless Tobacco Status: No Alcohol use: none Drug use: none Current living situation: Home - Independent, With Family Activity Level: Independent ambulation - Family History Grandmother History Unknown: Yes Review of Systems All systems PM: reviewed and no additional remarkable complaints except as stated All systems PM: The remainder of the systems were reviewed and are negative General Surgery Exam Initial Vital Signs Temp Pulse Resp BP Pulse Ox 97.6 F 82 16 163/92 98 03/08/18 21:32 03/08/18 21:32 03/08/18 21:32 03/08/18 21:32 03/08/18 21:32 - General physical appearance well nourished, no distress - Eyes PERRL, normal ocular movement - ENT normal mucosa, normocephalic - Neck trachea midline - Respiratory normal expansion, normal respiratory effort - Cardiovascular Cardiovascular exam: Present: RRR - Rectum Rectum: Present: other (tender at posterior lateral perianal area, no obvious induration, erythema, fluctuance or drainage) - Integumentary Integumentary general surgery: Present: warm and dry - Neurologic Present: CN 2-12 grossly intact - Musculoskeletal Present: normal gait, normal posture - Psychiatric Psychiatric general surgery: Present: A&Ox3, speech is normal Results - Labs 03/09/18 05:26 03/09/18 05:26 Abnormal lab results Chloride 111 mEq/L (98-107) H 03/09/18 05:26 Carbon Dioxide 22 mEq/L (23-29) L 03/09/18 05:26 Glucose 126 mg/dL (70-105) H 03/09/18 05:26 POC Glucose 128 mg/dL (70-99) H 03/09/18 05:32 Ur Specific [place] 1.027 (1.010-1.025) H 03/08/18 22:16 Ur Leukocyte Esterase Trace (Negative) H 03/08/18 22:16 Urine Microscopic WBC 5-15 per hpf (0-3) H 03/08/18 22:16 Ur Squamous Epith Cells Many per lpf (None-Few) H 03/08/18 22:16 Ur Culture Indicated? NO. (NO) A 03/08/18 22:16 Diabetes panel 03/09/18 Range/Units 05:26 Sodium 138 (136-145) mEq/L Potassium 3.8 (3.5-5.1) mEq/L Chloride 111 H (98-107) mEq/L Carbon Dioxide 22 L (23-29) mEq/L BUN 11 (6-20) mg/dL Creatinine 0.64 (0.60-1.20) mg/dL Glucose 126 H (70-105) mg/dL Calcium 8.6 (8.6-10.3) mg/dL Calcium panel 03/09/18 Range/Units 05:26 Calcium 8.6 (8.6-10.3) mg/dL Pituitary panel 03/09/18 Range/Units 05:26 Sodium 138 (136-145) mEq/L Potassium 3.8 (3.5-5.1) mEq/L Chloride 111 H (98-107) mEq/L Carbon Dioxide 22 L (23-29) mEq/L BUN 11 (6-20) mg/dL Creatinine 0.64 (0.60-1.20) mg/dL Glucose 126 H (70-105) mg/dL Calcium 8.6 (8.6-10.3) mg/dL Adrenal panel 03/09/18 Range/Units 05:26 Sodium 138 (136-145) mEq/L Potassium 3.8 (3.5-5.1) mEq/L Chloride 111 H (98-107) mEq/L Carbon Dioxide 22 L (23-29) mEq/L BUN 11 (6-20) mg/dL Creatinine 0.64 (0.60-1.20) mg/dL Glucose 126 H (70-105) mg/dL Calcium 8.6 (8.6-10.3) mg/dL All other labs normal. - Imaging CT scan - abdomen: report reviewed, image reviewed CT scan - pelvis: report reviewed, image reviewed - Attending Attestation I have personally performed a face to face evaluation on this patient. I have reviewed and agree with the care plan. History and Exam by me shows:
[2018-03-09] MEDS ORDERED: Naloxone 0.4 MG/ML INJ IVP PRN (10:52)
[2018-03-09] MEDS ORDERED: *HR* Promethazine 25 MG/ML VIAL IVP PRN (10:52)
[2018-03-09] MEDS ORDERED: 0.9 % Sodium Chloride 1,000 ML IVC SCH (11:00)
[2018-03-09] MEDS ORDERED: Gadolinium Contrast Agent (WT Based) IV PRN (11:20)
--- NOTE | 2018-03-09 11:25 | Gastroenterology Consult Note ---
Date of Encounter: 03/09/18 Time of Encounter: 10:20 - Assessment and plan (1) Martha-rectal abscess Current Visit: Yes Status: Acute Assessment and plan: Pt with recurrent perirectal abscesses, concern that this could be due to possible Crohn's. Recent colonoscopy (06/13/2017 with negative random biopsies) . CT with phlegmon but no drainable abscess noted. Continue sitz baths and antibiotics. Check MRI pelvis and IBD panel. Consider EGD and possible capsule endoscopy as outpatient. Follow up in GI office with Dr. Downing in 2 weeks. (2) Leukocytosis Current Visit: No Status: Acute Assessment and plan: Improved, continue antibiotics. Qualifiers: Leukocytosis type: unspecified Qualified Code(s): D72.829 - Elevated white blood cell count, unspecified - Time Spent With Patient Total time spent is greater than 50% in coordination of care (as documented) at patient's floor/unit and/or counseling patient: GI History of Present Illness - Data of Consult Patient: new to practice Consult date: 03/09/18 Requesting Physician: Angelia Sosa MD - Consult Narrative Reason for consult: Recurrent perianal abscess, possible Crohn's History of present illness: Ms. Chew is a 37 year old female with PMHx of HTN, HLD, multiple perianal abscess, she has had multiple I/D's by ER's or the area with open on its own after sitz baths and spontaneously drain. Patient presented to the ED with concern for infection of perirectal abscess. She reports several day of pain and has tried to manage the pain at home, but failed. Pain is worse with walking and with BM. We were consulted to evaluate her recurrent perirectal abscesses due to possible Crohn's. Colonoscopy 06/13/[address] pelvis showed phlegmon and probable early abscess in right perirectal soft tissues. Procedures: Colonoscopy 06/13/2017 Dr. Sosa: Diverticulosis, five tubular adenomas ranging in size from 2-4mm in the sigmoid colon, descending colon, hepatic flexure, asending colon, and cecum. Random biopsies negative. NSAIDs: None Anticoagulation: None Past Med Surg Social Fam HX - Past Medical History Medical history: asthma, GERD, hypertension, other (recurrent perianal/ perirectal abscesses) Additional medical history: heart palpitations Psychiatric history: anxiety, depression - Past Surgical History Surgical History: other (colonscopy) Additional surgical history: ID of martha/rectal abscess. appendectomy. tubal. tonsils - Social History Smoking Status: Current every day smoker Smokeless Tobacco Status: No Alcohol use: none Drug use: none - Family History Grandmother History Unknown: Yes - Gastrointestinal Gastrointestinal: Present: as per HPI - Constitutional Constitutional: as per HPI - EENT Eyes: as per HPI Ears: Present: as per HPI Nose, mouth and throat: Present: as per HPI - Cardiovascular Cardiovascular ROS: Present: as per HPI - Respiratory Respiratory IM: Present: as per HPI - Genitourinary Genitourinary: Absent: change in color, Urinary frequency - Neurological ROS Neurological GI: Present: as per HPI - Hematologic/Lymphatic Hematologic/Lymphatic pediatric: Present: as per HPI - Musculoskeletal Musculoskeletal ROS GI: Present: as per HPI - Integumentary Integumentary GI: Present: as per HPI - Psychiatric ROS Psychiatric GI: Present: as per HPI - Endocrine Endocrine IM: Present: as per HPI - Constitutional Vitals: Temp Pulse Resp BP Pulse Ox 97.6 F 71 16 94/59 97 03/09/18 10:20 03/09/18 10:20 03/09/18 10:20 03/09/18 10:20 03/09/18 10:20 General appearance: Present: cooperative, A&O X 3, no acute distress, answers questions appropriately - Head Head exam: Present: atraumatic, normocephalic - Eye Eye exam: Present: normal appearance, sclera anicteric - ENT ENT exam: Present: mucous membranes moist - Neck Neck exam general surgery: Present: normal inspection, trachea midline - Respiratory Respiratory exam: Present: CTAB. Absent: rales, rhonchi - Cardiovascular Cardiovascular exam: Present: RRR, +S1, +S2 - GI/Abdominal GI/Abdominal exam: Present: soft, tenderness (mild LLQ tenderness to deep palpation.), no peritoneal signs. Absent: distended, firm, guarding - Rectal Rectal exam: Present: tenderness (No erythema) - Extremities Exam Extremities exam: Present: warm - Neurological Exam Neurological exam: Present: no focal deficits - Psychiatric Psychiatric exam: Present: normal affect, normal mood - Skin Skin exam: Present: dry, intact, normal color, warm Results - Labs CBC & Chem 7: 03/09/18 05:26 03/09/18 05:26 Labs: Last Result Calcium 8.6 mg/dL (8.6-10.3) 03/09/18 05:26 Entire Visit Hgb 12.4 g/dL (11.5-15.4) 03/09/18 05:26 Hct 35.3 % (35.3-44.9) 03/09/18 05:26 Consult Discharge Plan - Plan Referrals: Irais Soto, [employer]ICER [Primary Care Provider] -
[2018-03-09] MEDS: Famotidine 20 MG TABLET PO SCH (12:01)
[2018-03-09] MEDS: Beclomethasone 80mcg MDI IH SCH (20:05)
[2018-03-10] MEDS ORDERED: diazePAM 2 MG TABLET PO ONE (00:58)
[2018-03-10] MEDS: Piperacillin/Tazobactam 3.375 GM in 0.9 % Sodium Chloride Mini Bag 100 ML IVPB SCH ×3 (01:03→16:46)
[2018-03-10] MEDS: OXYCODONE Oral CONC 10 MG/0.5 ML ORAL.SYG SL PRN ×4 (01:31→22:48)
[2018-03-10 05:24] LABS: Basophils % 0.5 %; Eosinophils # 0.2 K/mcL (0.0-0.6); Hematocrit 33.4 % (35.3-44.9); Hemoglobin 11.7 g/dL (11.5-15.4); Immature Granulocytes % 0.4 % (0-4); Lymphocytes # 2.6 K/mcL (0.6-4.6); Lymphocytes % 31.2 %; Mean Corpuscular Hemoglobin 32.1 pg (28.0-33.3); Mean Corpuscular Volume 91.5 fL (83.0-100.0); Mean Platelet Volume 10.3 fL (9.4-12.4); Monocytes # 0.6 K/mcL (0.0-1.3); Monocytes % 6.8 %; Neutrophils # 4.9 K/mcL (1.6-8.9); Platelet Count 242 K/mcL (140-400); Red Blood Count 3.65 M/mcL (3.82-4.97); Segmented Neutrophils % 59.1 %
[2018-03-10 05:48] LABS: BUN/Creatinine Ratio 17 (6-26); Blood Urea Nitrogen 11 mg/dL (6-20); Calcium 8.6 mg/dL (8.6-10.3); Carbon Dioxide 22 mEq/L (23-29); Chloride 109 mEq/L (98-107); Glucose 122 mg/dL (70-105); Osmolality,Calculated 287 (280-300); Sodium 138 mEq/L (136-145); eGFR For African Americans > 60 (> 60); eGFR For Non-African Americans > 60 (> 60)
[2018-03-10] MEDS: Beclomethasone 80mcg MDI IH SCH ×2 (07:44→20:51)
[2018-03-10] MEDS: Famotidine 20 MG TABLET PO SCH (10:03)
[2018-03-10] MEDS: hydroCHLOROthiazide 25 MG TABLET PO SCH (10:03)
--- NOTE | 2018-03-10 14:39 | General Surg History&Physical ---
Date of Encounter: 03/10/18 Time of Encounter: 09:00 History of Present Illness HPI: Ms. Chew is a 37 year old female Past Med Surg Social Fam HX - Past Medical History Medical history: asthma, GERD, hypertension, other (recurrent perianal/ perirectal abscesses) Additional medical history: heart palpitations Psychiatric history: anxiety, depression - Past Surgical History Surgical History: other (colonscopy) Additional surgical history: ID of cherry/rectal abscess. appendectomy. tubal. tonsils - Social History Smoking Status: Current every day smoker Smokeless Tobacco Status: No Alcohol use: none Drug use: none - Family History Grandmother History Unknown: Yes Medications and Allergies Albuterol Sulfate [Proair Hfa] 2 puff IH Q6H PRN 03/09/18 [History] Aspirin Enteric Coated [Aspirin EC] 81 mg PO DAILY 03/09/18 [History] Beclomethasone Diprop 80mcg [Qvar 80 mcg] 1 puff IH BID 03/09/18 [History] Carvedilol [Coreg] 6.25 mg PO DAILY 03/09/18 [History] Cyclobenzaprine [Flexeril] 10 mg PO BID PRN 03/09/18 [History] Hydrochlorothiazide [Microzide] 12.5 mg PO DAILY 03/09/18 [History] Ranitidine HCl [Acid Qualitative Researcher] 150 mg PO DAILY 03/09/18 [History] diazePAM [Valium] 2 mg PO BID 03/09/18 [History] 3 Allergy/AdvReac Type Severity Reaction Status Date / Time sulfamethoxazole AdvReac Hives Verified 03/09/18 10:19 [From Bactrim] trimethoprim [From Bactrim] AdvReac Hives Verified 03/09/18 10:19 Review of Systems All systems PM: The remainder of the systems were reviewed and are negative General Surgery Exam Initial Vital Signs Temp Pulse Resp BP Pulse Ox 97.6 F 82 16 163/92 98 03/08/18 21:32 03/08/18 21:32 03/08/18 21:32 03/08/18 21:32 03/08/18 21:32 Results - Labs 03/10/18 04:38 03/10/18 04:38 Abnormal lab results RBC 3.65 M/mcL (3.82-4.97) L 03/10/18 04:38 Hct 33.4 % (35.3-44.9) L 03/10/18 04:38 Chloride 109 mEq/L (98-107) H 03/10/18 04:38 Carbon Dioxide 22 mEq/L (23-29) L 03/10/18 04:38 Glucose 122 mg/dL (70-105) H 03/10/18 04:38 POC Glucose 100 mg/dL (70-99) H 03/10/18 10:55 Ur Specific [place] 1.027 (1.010-1.025) H 03/08/18 22:16 Ur Leukocyte Esterase Trace (Negative) H 03/08/18 22:16 Urine Microscopic WBC 5-15 per hpf (0-3) H 03/08/18 22:16 Ur Squamous Epith Cells Many per lpf (None-Few) H 03/08/18 22:16 Ur Culture Indicated? NO. (NO) A 03/08/18 22:16 Diabetes panel 03/10/18 Range/Units 04:38 Sodium 138 (136-145) mEq/L Potassium 4.0 (3.5-5.1) mEq/L Chloride 109 H (98-107) mEq/L Carbon Dioxide 22 L (23-29) mEq/L BUN 11 (6-20) mg/dL Creatinine 0.65 (0.60-1.20) mg/dL Glucose 122 H (70-105) mg/dL Calcium 8.6 (8.6-10.3) mg/dL Calcium panel 03/10/18 Range/Units 04:38 Calcium 8.6 (8.6-10.3) mg/dL Pituitary panel 03/10/18 Range/Units 04:38 Sodium 138 (136-145) mEq/L Potassium 4.0 (3.5-5.1) mEq/L Chloride 109 H (98-107) mEq/L Carbon Dioxide 22 L (23-29) mEq/L BUN 11 (6-20) mg/dL Creatinine 0.65 (0.60-1.20) mg/dL Glucose 122 H (70-105) mg/dL Calcium 8.6 (8.6-10.3) mg/dL Adrenal panel 03/10/18 Range/Units 04:38 Sodium 138 (136-145) mEq/L Potassium 4.0 (3.5-5.1) mEq/L Chloride 109 H (98-107) mEq/L Carbon Dioxide 22 L (23-29) mEq/L BUN 11 (6-20) mg/dL Creatinine 0.65 (0.60-1.20) mg/dL Glucose 122 H (70-105) mg/dL Calcium 8.6 (8.6-10.3) mg/dL All other labs normal.
--- NOTE | 2018-03-10 14:43 | General Surgery Progress Note ---
<Edu Paz - Last Filed: 03/10/18 14:46> Date of Encounter: 03/10/18 Time of Encounter: 09:00 - Assessment and Plan (1) Martha-rectal abscess Current Visit: Yes Status: Acute Advance to full liquid diet D/C If patient tolerates full liquid diet Cointue IV ATBX and Sitz baths Subjective Patient reports: no new complaints, still having pain, tolerating liquids well Objective Vital Signs - Last 8 Hours Temp Resp BP Pulse Ox 03/10/18 10:07 97.4 F L 16 103/69 96 03/10/18 07:44 17 98 Intake and Output 03/09/18 03/10/18 03/10/18 23:59 07:59 15:59 Intake Total 340 / 340 100 / 100 800 / 800 Output Total 0 / 0 200 / 200 Balance 340 / 340 100 / 100 600 / 600 Intake: IV Fluids 100 / 100 100 / 100 Zosyn 3.375 GM In 0.9 % Sodium 100 / 100 100 / 100 Chloride (Mini-Bag +) 100 ML @ 25 mls/hr IVPB Q8HR [facility] Rx#: [id number] Oral 240 / 240 0 / 0 800 / 800 Output: Urine 0 / 0 200 / 200 Other: Meal Dinner Lunch Percent of Meal Consumed 20% 100% # Bowel Movements 0 Blood Glucose* 119 100 - General physical appearance well developed, well nourished, no distress - Respiratory normal expansion, normal respiratory effort - Cardiovascular Cardiovascular exam: Present: RRR - Rectum other (phlegmon) - Psychiatric oriented to time, oriented to person, oriented to place, speech is normal, memory intact - Labs 03/10/18 04:38 03/10/18 04:38 Diabetes panel 03/10/18 Range/Units 04:38 Sodium 138 (136-145) mEq/L Potassium 4.0 (3.5-5.1) mEq/L Chloride 109 H (98-107) mEq/L Carbon Dioxide 22 L (23-29) mEq/L BUN 11 (6-20) mg/dL Creatinine 0.65 (0.60-1.20) mg/dL Glucose 122 H (70-105) mg/dL Calcium 8.6 (8.6-10.3) mg/dL Calcium panel 03/10/18 Range/Units 04:38 Calcium 8.6 (8.6-10.3) mg/dL Pituitary panel 03/10/18 Range/Units 04:38 Sodium 138 (136-145) mEq/L Potassium 4.0 (3.5-5.1) mEq/L Chloride 109 H (98-107) mEq/L Carbon Dioxide 22 L (23-29) mEq/L BUN 11 (6-20) mg/dL Creatinine 0.65 (0.60-1.20) mg/dL Glucose 122 H (70-105) mg/dL Calcium 8.6 (8.6-10.3) mg/dL Adrenal panel 03/10/18 Range/Units 04:38 Sodium 138 (136-145) mEq/L Potassium 4.0 (3.5-5.1) mEq/L Chloride 109 H (98-107) mEq/L Carbon Dioxide 22 L (23-29) mEq/L BUN 11 (6-20) mg/dL Creatinine 0.65 (0.60-1.20) mg/dL Glucose 122 H (70-105) mg/dL Calcium 8.6 (8.6-10.3) mg/dL Consult Discharge Plan - Plan Referrals: Irais Soto CNP [Primary Care Provider] - Rodri Ambrosio MD [Partnered Physician] - <Luis Coats - Last Filed: 03/10/18 22:14> Date of Encounter: 03/10/18 Objective Vital Signs - Last 8 Hours Temp Pulse Resp BP Pulse Ox 03/10/18 20:52 14 97 03/10/18 19:58 97.9 F 72 16 113/70 96 03/10/18 14:42 98.5 F 76 16 116/81 96 Intake and Output 03/10/18 03/10/18 03/10/18 07:59 15:59 23:59 Intake Total 100 / 100 900 / 900 Output Total 0 / 0 200 / 200 Balance 100 / 100 700 / 700 Intake: IV Fluids 100 / 100 100 / 100 Zosyn 3.375 GM In 0.9 % Sodium 100 / 100 100 / 100 Chloride (Mini-Bag +) 100 ML @ 25 mls/hr IVPB Q8HR [facility] Rx#: [id number] Oral 0 / 0 800 / 800 Output: Urine 0 / 0 200 / 200 Other: Meal Lunch Percent of Meal Consumed 100% # Voids 1 # Bowel Movements 0 0 Blood Glucose* 119 100 - Labs 03/10/18 04:38 03/10/18 04:38 Diabetes panel 03/10/18 Range/Units 04:38 Sodium 138 (136-145) mEq/L Potassium 4.0 (3.5-5.1) mEq/L Chloride 109 H (98-107) mEq/L Carbon Dioxide 22 L (23-29) mEq/L BUN 11 (6-20) mg/dL Creatinine 0.65 (0.60-1.20) mg/dL Glucose 122 H (70-105) mg/dL Calcium 8.6 (8.6-10.3) mg/dL Calcium panel 03/10/18 Range/Units 04:38 Calcium 8.6 (8.6-10.3) mg/dL Pituitary panel 03/10/18 Range/Units 04:38 Sodium 138 (136-145) mEq/L Potassium 4.0 (3.5-5.1) mEq/L Chloride 109 H (98-107) mEq/L Carbon Dioxide 22 L (23-29) mEq/L BUN 11 (6-20) mg/dL Creatinine 0.65 (0.60-1.20) mg/dL Glucose 122 H (70-105) mg/dL Calcium 8.6 (8.6-10.3) mg/dL Adrenal panel 03/10/18 Range/Units 04:38 Sodium 138 (136-145) mEq/L Potassium 4.0 (3.5-5.1) mEq/L Chloride 109 H (98-107) mEq/L Carbon Dioxide 22 L (23-29) mEq/L BUN 11 (6-20) mg/dL Creatinine 0.65 (0.60-1.20) mg/dL Glucose 122 H (70-105) mg/dL Calcium 8.6 (8.6-10.3) mg/dL - Attending Attestation patient seen and examined. i have reviewed all imaging, labs, and vitals. i agree with the above assessment and plan.
[2018-03-11] MEDS: diazePAM 2 MG TABLET PO PRN ×2 (01:14→23:22)
[2018-03-11] MEDS: Piperacillin/Tazobactam 3.375 GM in 0.9 % Sodium Chloride Mini Bag 100 ML IVPB SCH ×4 (01:18→23:52)
[2018-03-11] MEDS: OXYCODONE Oral CONC 10 MG/0.5 ML ORAL.SYG SL PRN ×3 (05:13→14:50)
[2018-03-11] MEDS: hydroCHLOROthiazide 25 MG TABLET PO SCH (09:04)
[2018-03-11] MEDS: Famotidine 20 MG TABLET PO SCH (09:04)
[2018-03-11] MEDS: Beclomethasone 80mcg MDI IH SCH ×2 (09:49→19:50)
--- NOTE | 2018-03-11 11:41 | General Surgery Progress Note ---
Date of Encounter: 03/11/18 Time of Encounter: 11:40 - Assessment and Plan (1) Martha-rectal abscess Current Visit: Yes Status: Acute D/C - patient tolerating full diet okay to d/c Reccomend [place] baths Subjective Patient reports: no new complaints, still having pain, tolerating a regular diet , no flatus, no bowel movement Narrative: Patient is comfortable. She is tolerating her full diet. She reports concerns about not having insurance, so she'd like to have all tests completed before she leaves. She already has paperwork from social work for assistance. Concerned that the "knot" that she can feel in her anal sphincter is not being adequately addressed. Reports that the pain in rectum has not changed. No difficulties sleeping. Objective Vital Signs - Last 8 Hours Temp Pulse Resp BP Pulse Ox 03/11/18 10:36 98.0 F 70 16 95/62 95 03/11/18 07:02 98.2 F 68 16 110/69 94 Intake and Output 03/10/18 03/11/18 03/11/18 23:59 07:59 15:59 Intake Total 100 / 100 100 / 100 480 / 480 Output Total 0 / 0 Balance 100 / 100 100 / 100 480 / 480 Intake: IV Fluids 100 / 100 100 / 100 Zosyn 3.375 GM In 0.9 % Sodium 100 / 100 100 / 100 Chloride (Mini-Bag +) 100 ML @ 25 mls/hr IVPB Q8HR [facility] Rx#: [id number] Oral 0 / 0 480 / 480 Output: Urine 0 / 0 Other: Meal Breakfast Percent of Meal Consumed 100% # Voids 1 1 # Bowel Movements 0 0 - General physical appearance well developed, well nourished, no distress - Respiratory normal respiratory effort - Cardiovascular Cardiovascular exam: Present: RRR - Abdomen Abdomen: Present: soft, non tender Hernia: none - Rectum other (erythematous) - Labs 03/10/18 04:38 03/10/18 04:38 Consult Discharge Plan - Plan Referrals: Irais Soto CNP [Primary Care Provider] - Rodri Ambrosio MD [Partnered Physician] -
[2018-03-11] MEDS: *HR* OxyCODONE/APAP 7.5/325 TABLET PO PRN ×2 (18:05→23:42)
[2018-03-12] MEDS: *HR* OxyCODONE/APAP 7.5/325 TABLET PO PRN ×4 (03:57→21:49)
[2018-03-12] MEDS: Beclomethasone 80mcg MDI IH SCH ×2 (07:45→19:45)
[2018-03-12] MEDS: Famotidine 20 MG TABLET PO SCH (08:44)
[2018-03-12] MEDS: Piperacillin/Tazobactam 3.375 GM in 0.9 % Sodium Chloride Mini Bag 100 ML IVPB SCH ×2 (08:45→17:44)
[2018-03-12 09:01] LABS: Basophils # 0.1 K/mcL (0.0-0.2); Basophils % 0.7 %; Eosinophils # 0.2 K/mcL (0.0-0.6); Eosinophils % 3.2 %; Hematocrit 38.1 % (35.3-44.9); Immature Granulocytes % 0.7 % (0-4); Lymphocytes # 2.6 K/mcL (0.6-4.6); Lymphocytes % 34.9 %; Mean Corpuscular HGB Conc 36.5 g/dL (31.6-35.5); Mean Corpuscular Hemoglobin 32.6 pg (28.0-33.3); Mean Corpuscular Volume 89.2 fL (83.0-100.0); Mean Platelet Volume 10.4 fL (9.4-12.4); Monocytes # 0.5 K/mcL (0.0-1.3); Monocytes % 7.2 %; Platelet Count 282 K/mcL (140-400); Red Blood Count 4.27 M/mcL (3.82-4.97); Red Cell Distribution Width 12.7 % (11.5-14.5); Segmented Neutrophils % 53.3 %
--- NOTE | 2018-03-12 09:01 | General Surgery Consult Note ---
Date of Encounter: 03/12/18 Time of Encounter: 09:00 Assessment and Plan (1) Cherry-rectal abscess Current Visit: Yes Status: Acute Past Med Surg Social Fam HX - Past Medical History Medical history: asthma, GERD, hypertension, other (recurrent perianal/ perirectal abscesses) Additional medical history: heart palpitations Psychiatric history: anxiety, depression - Past Surgical History Surgical History: other (colonscopy) Additional surgical history: ID of cherry/rectal abscess. appendectomy. tubal. tonsils - Social History Smoking Status: Current every day smoker Smokeless Tobacco Status: No Alcohol use: none Drug use: none - Family History Grandmother History Unknown: Yes Medications and Allergies Albuterol Sulfate [Proair Hfa] 2 puff IH Q6H PRN 03/09/18 [History] Aspirin Enteric Coated [Aspirin EC] 81 mg PO DAILY 03/09/18 [History] Beclomethasone Diprop 80mcg [Qvar 80 mcg] 1 puff IH BID 03/09/18 [History] Carvedilol [Coreg] 6.25 mg PO DAILY 03/09/18 [History] Cyclobenzaprine [Flexeril] 10 mg PO BID PRN 03/09/18 [History] Hydrochlorothiazide [Microzide] 12.5 mg PO DAILY 03/09/18 [History] Ranitidine HCl [Acid Manager Primary] 150 mg PO DAILY 03/09/18 [History] diazePAM [Valium] 2 mg PO BID 03/09/18 [History] 3 Allergy/AdvReac Type Severity Reaction Status Date / Time sulfamethoxazole AdvReac Hives Verified 03/09/18 10:19 [From Bactrim] trimethoprim [From Bactrim] AdvReac Hives Verified 03/09/18 10:19 Review of Systems All systems PM: The remainder of the systems were reviewed and are negative General Surgery Exam Initial Vital Signs Temp Pulse Resp BP Pulse Ox 97.6 F 82 16 163/92 98 03/08/18 21:32 03/08/18 21:32 03/08/18 21:32 03/08/18 21:32 03/08/18 21:32 Exam Initial Vital Signs Temp Pulse Resp BP Pulse Ox 97.6 F 82 16 163/92 98 03/08/18 21:32 03/08/18 21:32 03/08/18 21:32 03/08/18 21:32 03/08/18 21:32 Results - Labs 03/10/18 04:38 03/10/18 04:38 Abnormal lab results RBC 3.65 M/mcL (3.82-4.97) L 03/10/18 04:38 Hct 33.4 % (35.3-44.9) L 03/10/18 04:38 Chloride 109 mEq/L (98-107) H 03/10/18 04:38 Carbon Dioxide 22 mEq/L (23-29) L 03/10/18 04:38 Glucose 122 mg/dL (70-105) H 03/10/18 04:38 POC Glucose 140 mg/dL (70-99) H 03/12/18 05:48 Ur Specific [place] 1.027 (1.010-1.025) H 03/08/18 22:16 Ur Leukocyte Esterase Trace (Negative) H 03/08/18 22:16 Urine Microscopic WBC 5-15 per hpf (0-3) H 03/08/18 22:16 Ur Squamous Epith Cells Many per lpf (None-Few) H 03/08/18 22:16 Ur Culture Indicated? NO. (NO) A 03/08/18 22:16 All other labs normal. Consult Discharge Plan - Plan Referrals: Irais Soto CNP [Primary Care Provider] - Rodri Ambrosio MD [Partnered Physician] -
--- NOTE | 2018-03-12 09:06 | General Surgery Progress Note ---
<Edu Paz - Last Filed: 03/12/18 09:07> Date of Encounter: 03/12/18 Time of Encounter: 08:00 - Assessment and Plan (1) Martha-rectal abscess Current Visit: Yes Status: Acute Patient going to OR for drainage of martha-rectal abcess Subjective Patient reports: no new complaints Narrative: Patient is comfortable and tolerating full diet. Notified that she will be going into OR today to drain perirectal abscess. Objective Vital Signs - Last 8 Hours Temp Pulse Resp BP Pulse Ox 03/12/18 08:29 98 03/12/18 07:46 18 98 03/12/18 06:46 97.6 F 62 16 111/73 99 Intake and Output 03/11/18 03/12/18 03/12/18 23:59 07:59 15:59 Intake Total 1410 / 1410 100 / 100 Output Total 0 / 0 0 / 0 Balance 1410 / 1410 100 / 100 Intake: IV Fluids 100 / 100 100 / 100 Zosyn 3.375 GM In 0.9 % Sodium 100 / 100 100 / 100 Chloride (Mini-Bag +) 100 ML @ 25 mls/hr IVPB Q8HR [facility] Rx#: [id number] Oral 1310 / 1310 Output: Urine 0 / 0 0 / 0 Other: Meal Dinner npo Percent of Meal Consumed 100% # Voids 3 # Bowel Movements 0 Weight 90.4 kg Blood Glucose* 140 Patient Weight 03/12/18 23:59 Weight 90.4 kg - General physical appearance well developed, well nourished, no distress - Respiratory normal respiratory effort - Cardiovascular Cardiovascular exam: Present: RRR - Abdomen Abdomen: Present: soft, non tender - Psychiatric oriented to time, oriented to person, oriented to place, speech is normal - Labs 03/10/18 04:38 03/10/18 04:38 Consult Discharge Plan - Plan Referrals: Irais Soto CNP [Primary Care Provider] - Rodri Ambrosio MD [Partnered Physician] - <Angelia Sosa - Last Filed: 03/12/18 13:16> Date of Encounter: 03/12/18 - Assessment and Plan (1) Martha-rectal abscess Current Visit: Yes Status: Acute patients perirectal infection appears to have developed into a small drainable abscess will plan rectal exam under anesthesia with I/D perirectal abscess npo continue abx prn pain control (2) Leukocytosis Current Visit: No Status: Resolved Qualifiers: Leukocytosis type: unspecified Qualified Code(s): D72.829 - Elevated white blood cell count, unspecified (3) HTN (hypertension) Current Visit: No Status: Chronic continue home medication Qualifiers: Hypertension type: essential hypertension Qualified Code(s): I10 - Essential (primary) hypertension Subjective Patient reports: still having pain, tolerating a regular diet, flatus, afebrile Objective Vital Signs - Last 8 Hours Temp Pulse Resp BP Pulse Ox 03/12/18 12:30 97.6 F 56 16 109/71 96 03/12/18 10:59 97.6 F 56 16 109/71 96 03/12/18 08:29 98 03/12/18 07:46 18 98 03/12/18 06:46 97.6 F 62 16 111/73 99 Intake and Output 03/11/18 03/12/18 03/12/18 23:59 07:59 15:59 Intake Total 1410 / 1410 100 / 100 Output Total 0 / 0 0 / 0 0 / 0 Balance 1410 / 1410 100 / 100 0 / 0 Intake: IV Fluids 100 / 100 100 / 100 Zosyn 3.375 GM In 0.9 % Sodium 100 / 100 100 / 100 Chloride (Mini-Bag +) 100 ML @ 25 mls/hr IVPB Q8HR [facility] Rx#: [id number] Oral 1310 / 1310 Output: Urine 0 / 0 0 / 0 Estimated Blood Loss 0 / 0 Other: Meal Dinner npo Percent of Meal Consumed 100% # Voids 3 1 # Bowel Movements 0 0 Weight 90.4 kg 90.4 kg Blood Glucose* 140 117 Patient Weight 03/12/18 23:59 Weight 90.4 kg - General physical appearance well developed, well nourished, no distress - Eyes PERRL, normal ocular movement - ENT normal mucosa, normocephalic - Neck Neck exam: trachea midline - Respiratory normal expansion, normal respiratory effort - Cardiovascular Cardiovascular exam: Present: RRR - Abdomen Abdomen: Present: soft, non tender - Rectum other (right posterior lateral perianal area wiht small ballotable area, no signficant erythema) - Integumentary no rash, no growths - Neurologic CN 2-12 grossly intact - Musculoskeletal normal posture - Psychiatric oriented to time, oriented to person, oriented to place, speech is normal, memory intact - Labs 03/12/18 08:24 03/12/18 08:24 Diabetes panel 03/12/18 Range/Units 08:24 Sodium 136 (136-145) mEq/L Potassium 4.0 (3.5-5.1) mEq/L Chloride 105 (98-107) mEq/L Carbon Dioxide 24 (23-29) mEq/L BUN 10 (6-20) mg/dL Creatinine 0.63 (0.60-1.20) mg/dL Glucose 118 H (70-105) mg/dL Calcium 9.3 (8.6-10.3) mg/dL Calcium panel 03/12/18 Range/Units 08:24 Calcium 9.3 (8.6-10.3) mg/dL Pituitary panel 03/12/18 Range/Units 08:24 Sodium 136 (136-145) mEq/L Potassium 4.0 (3.5-5.1) mEq/L Chloride 105 (98-107) mEq/L Carbon Dioxide 24 (23-29) mEq/L BUN 10 (6-20) mg/dL Creatinine 0.63 (0.60-1.20) mg/dL Glucose 118 H (70-105) mg/dL Calcium 9.3 (8.6-10.3) mg/dL Adrenal panel 03/12/18 Range/Units 08:24 Sodium 136 (136-145) mEq/L Potassium 4.0 (3.5-5.1) mEq/L Chloride 105 (98-107) mEq/L Carbon Dioxide 24 (23-29) mEq/L BUN 10 (6-20) mg/dL Creatinine 0.63 (0.60-1.20) mg/dL Glucose 118 H (70-105) mg/dL Calcium 9.3 (8.6-10.3) mg/dL - Attending Attestation I examined this patient and my medical decision-making was reviewed with the Resident Physician. I agree with the documented findings, disposition and treatment plan as described except to the extent set forth below.
[2018-03-12 09:07] LABS: Hemoglobin 13.9 g/dL (11.5-15.4)
[2018-03-12 09:10] LABS: BUN/Creatinine Ratio 16 (6-26); Blood Urea Nitrogen 10 mg/dL (6-20); Calcium 9.3 mg/dL (8.6-10.3); Carbon Dioxide 24 mEq/L (23-29); Chloride 105 mEq/L (98-107); Glucose 118 mg/dL (70-105); Osmolality,Calculated 282 (280-300); Sodium 136 mEq/L (136-145); eGFR For African Americans > 60 (> 60); eGFR For Non-African Americans > 60 (> 60)
--- NOTE | 2018-03-12 10:24 | General Surgery Progress Note ---
Date of Encounter: 03/12/18 Time of Encounter: 01:00 - Assessment and Plan (1) Cherry-rectal abscess Current Visit: Yes Status: Acute Patient going to OR for drainage of cherry-rectal abcess Subjective Patient reports: feels better Narrative: Patient reports having night sweats last night. Repots moderae abdominal pain in lower quadrant. Tolerating sips of clears. Reports watery bowel movements that are green. Objective Vital Signs - Last 8 Hours Temp Pulse Resp BP Pulse Ox 03/12/18 08:29 98 03/12/18 07:46 18 98 03/12/18 06:46 97.6 F 62 16 111/73 99 Intake and Output 03/11/18 03/12/18 03/12/18 23:59 07:59 15:59 Intake Total 1410 / 1410 100 / 100 Output Total 0 / 0 0 / 0 Balance 1410 / 1410 100 / 100 Intake: IV Fluids 100 / 100 100 / 100 Zosyn 3.375 GM In 0.9 % Sodium 100 / 100 100 / 100 Chloride (Mini-Bag +) 100 ML @ 25 mls/hr IVPB Q8HR [facility] Rx#: [id number] Oral 1310 / 1310 Output: Urine 0 / 0 0 / 0 Other: Meal Dinner npo Percent of Meal Consumed 100% # Voids 3 # Bowel Movements 0 Weight 90.4 kg Blood Glucose* 140 Patient Weight 03/12/18 23:59 Weight 90.4 kg - General physical appearance well developed, no distress - Respiratory normal respiratory effort - Labs 03/12/18 08:24 03/12/18 08:24 Diabetes panel 03/12/18 Range/Units 08:24 Sodium 136 (136-145) mEq/L Potassium 4.0 (3.5-5.1) mEq/L Chloride 105 (98-107) mEq/L Carbon Dioxide 24 (23-29) mEq/L BUN 10 (6-20) mg/dL Creatinine 0.63 (0.60-1.20) mg/dL Glucose 118 H (70-105) mg/dL Calcium 9.3 (8.6-10.3) mg/dL Calcium panel 03/12/18 Range/Units 08:24 Calcium 9.3 (8.6-10.3) mg/dL Pituitary panel 03/12/18 Range/Units 08:24 Sodium 136 (136-145) mEq/L Potassium 4.0 (3.5-5.1) mEq/L Chloride 105 (98-107) mEq/L Carbon Dioxide 24 (23-29) mEq/L BUN 10 (6-20) mg/dL Creatinine 0.63 (0.60-1.20) mg/dL Glucose 118 H (70-105) mg/dL Calcium 9.3 (8.6-10.3) mg/dL Adrenal panel 03/12/18 Range/Units 08:24 Sodium 136 (136-145) mEq/L Potassium 4.0 (3.5-5.1) mEq/L Chloride 105 (98-107) mEq/L Carbon Dioxide 24 (23-29) mEq/L BUN 10 (6-20) mg/dL Creatinine 0.63 (0.60-1.20) mg/dL Glucose 118 H (70-105) mg/dL Calcium 9.3 (8.6-10.3) mg/dL Consult Discharge Plan - Plan Referrals: Irais Soto CNP [Primary Care Provider] - Rodri Ambrosio MD [Partnered Physician] -
[2018-03-12] MEDS ORDERED: 0.9 % Sodium Chloride 1,000 ML IVC SCH ×2 (10:45→14:08)
--- NOTE | 2018-03-12 11:36 | Anesthesia Evaluation PreOp ---
Date of Encounter: 03/12/18 Time of Encounter: 11:34 - Past History Planned Operation: Rectal EUA, I & D Perianal Abscess Cardiac History: HTN, Arrhythmia (palpitations) Pulmonary History: Smoker (15 years), Asthma TOXICS PROGRAM OFFICER History: Denies Any Significant HX Other Medical History: GERD, Other (anxiety) Anesthesia History: No Prior Anesthetic Complications, Past Anesthesia Test: Negative (03/12/2018) Alcohol Use: rarely Drug use: none Medications and Allergies Albuterol Sulfate [Proair Hfa] 2 puff IH Q6H PRN 03/09/18 [History] Aspirin Enteric Coated [Aspirin EC] 81 mg PO DAILY 03/09/18 [History] Beclomethasone Diprop 80mcg [Qvar 80 mcg] 1 puff IH BID 03/09/18 [History] Carvedilol [Coreg] 6.25 mg PO DAILY 03/09/18 [History] Cyclobenzaprine [Flexeril] 10 mg PO BID PRN 03/09/18 [History] Hydrochlorothiazide [Microzide] 12.5 mg PO DAILY 03/09/18 [History] Ranitidine HCl [Acid Printing Estimator] 150 mg PO DAILY 03/09/18 [History] diazePAM [Valium] 2 mg PO BID 03/09/18 [History] 3 Allergy/AdvReac Type Severity Reaction Status Date / Time sulfamethoxazole AdvReac Hives Verified 03/09/18 10:19 [From Bactrim] trimethoprim [From Bactrim] AdvReac Hives Verified 03/09/18 10:19 - Meds/Allergy Pre-op Review Medications Reviewed: Yes Allergies Reviewed: Yes Beta Blockers on Current Med List: Yes If Beta Blockers taken, Date/Time (Last Dose taken): 03/12/2018 at 0844 Anesthesia Results - Labs 03/12/18 08:24 03/12/18 08:24 Laboratory Tests 10/24/16 21:11 PT 10.8 INR 1.0 APTT 29.9 - Imaging EKG: report reviewed (10/24/2016 SINUS RHYTHM LOW QRS VOLTAGE IN PRECORDIAL LEADS ) Anesthesia Exam Vital Signs/O2 Sat/Glucose, Most Recent Temp Pulse Resp BP Pulse Ox 97.6 F 56 16 109/71 96 03/12/18 10:59 03/12/18 10:59 03/12/18 10:59 03/12/18 10:59 03/12/18 10:59 Blood Glucose* 140 Height: 5'6"/1.68m Weight: 199 lbs/90.4 kg NPO (# of Hours): 8 Pain Scale: 7 Pain Scale Used: Numeric (1 - 10) - HEENT Pupil (Motor): EOMI Mallampati: II Teeth: Normal Oral Opening: Greater than 3 - TOXICS PROGRAM OFFICER LOC: Oriented TOXICS PROGRAM OFFICER Motor: Normal RUE, Normal LUE, Normal RLE, Normal LLE, Normal Face TOXICS PROGRAM OFFICER Sensory: Normal: RUE, LUE, RLE, LLE, Face - Cardiac Rhythm: Regular Murmur: None - Pulmonary Breath Sounds: bilateral Clear Respiratory Effort: Symmetrical Anesthesia Assess/Plan ASA Score: 2 Modified [place] Scale for Level of Consciousness: Cooperative, oriented, and tranquil Anesthetic Plan: General Monitoring Plan: Standard Monitors Recovery Plan: PACU
[2018-03-12] MEDS ORDERED: Lidocaine Jelly 6ml 1 APPL/6 ML JEL.PF.APP ONE (12:07)
[2018-03-12] MEDS ORDERED: Lidocaine -MPF 2% 2 ML VIAL ONE (12:11)
[2018-03-12] MEDS ORDERED: Ondansetron 4 MG/2 ML VIAL ONE (12:11)
[2018-03-12] MEDS ORDERED: Dexamethasone 4 MG/ML VIAL ONE (12:11)
[2018-03-12] MEDS ORDERED: *HR* Propofol 200 MG/20 ML VIAL IVP ONE (12:11)
[2018-03-12] MEDS ORDERED: *HR* FentaNYL (PF) 100 MCG/2 ML VIAL ONE (12:11)
[2018-03-12] MEDS ORDERED: *HR* Succinylcholine 200 MG/10 ML VIAL IVP ONE (12:11)
[2018-03-12] MEDS ORDERED: *HR* Midazolam HCl 2 MG/2 ML VIAL ONE (12:11)
[2018-03-12] MEDS ORDERED: Lidocaine -MPF 4% 5 ML AMPUL ONE (12:11)
[2018-03-12] MEDS ORDERED: MORPHINE SUL Oral CONC 10 MG/0.5 ML ORAL.SYG SL PRN (12:48)
[2018-03-12] MEDS ORDERED: *HR* Labetalol 20 MG/4 ML SYRINGE IVP PRN (12:48)
[2018-03-12] MEDS ORDERED: *HR* OxyCODONE Immed Rel 5 MG TABLET PO PRN (12:48)
[2018-03-12] MEDS ORDERED: *HR* Meperidine 25 MG/ML SYRINGE IVP PRN (12:48)
[2018-03-12] MEDS ORDERED: *HR* FentaNYL (PF) 100 MCG/2 ML VIAL IVP PRN (12:48)
--- NOTE | 2018-03-12 13:10 | Operative Note ---
Date of procedure: 03/12/18 Pre-op diagnosis: Perirectal abscess Post-op diagnosis: same Procedure: Rectal exam under anesthesia, incision and drainage perirectal abscess Complications: none immediate Anesthesia: GETA, local Local Anesthetics: 0.5% Sensorcaine HCL SubQ (cc) Surgeon: Angelia Sosa Was there an nurses assistant present: Yes Apple Turner: Oneida Gutierrez Estimated blood loss (cc): 3 Specimen: aerobic/anaerobic cultures Condition: stable Disposition: PACU Procedure in Detail: Patient was brought into the operating suite on the transport cart. Sign in was performed and everyone was in agreement. Anesthesia was induced and patient was endotracheally intubated by anesthesia without incident. She was placed prone on the operating table with all pressure points padded by foam and pillows. The bed was flexed and her bilateral buttocks had TinCoBen applied and then 3 inch silk tape was used for exposure and retraction. The anal and bilateral buttock area was prepped and draped in the usual sterile fashion with Betadine. Timeout was performed again everyone was in agreement. There was a small ballotable area in the right lateral posterior perianal area consistent with the area of phlegmon on CT scan from several days ago. An 11 blade was used to make an elliptical incision through the skin into the subcutaneous tissue at this area and purulent drainage resulted. The pus was cultured for aerobic and anaerobic cultures. The I&D abscess cavity was evaluated with a hemostat to break up any loculations. The wound was irrigated with sterile saline. Any bleeding points were stopped with Bovie. 0.5% Marcaine was injected subcutaneously around the abscess cavity. The abscess cavity was packed with quarter inch iodoform packing covered with 4 x 4 gauze and secured with Medipore tape. All lap and instrument counts are correct at the end of the case. The patient was then placed supine on the transport cart where she was awoken by anesthesia. She was taken to PACU in stable condition and extubated in PACU.
--- NOTE | 2018-03-12 13:19 | Discharge Summary ---
<Angelia Sosa - Last Filed: 03/12/18 13:17> Orders not resulted at time of discharge: Pending orders 03/09/18 12:15 Inflammatory Bowel Disease Routine 03/12/18 12:32 POC Urine [POC] Stat 03/12/18 13:10 Culture,Anaerobic [RM] Routine Culture,Wound [RM] Routine 03/13/18 04:00 BMP [Basic Metabolic Panel] AM 0400 Complete Blood Count [HEME] AM 0400 Date of Encounter: 03/13/18 Time of Encounter: 12:00 - Discharge Diagnosis (1) Martha-rectal abscess Priority: Primary Status: Acute (2) Leukocytosis Priority: Secondary Status: Resolved Qualifiers: Leukocytosis type: unspecified Qualified Code(s): D72.829 - Elevated white blood cell count, unspecified (3) HTN (hypertension) Priority: Secondary Status: Chronic Qualifiers: Hypertension type: essential hypertension Qualified Code(s): I10 - Essential (primary) hypertension General Surgery Exam Initial Vital Signs Temp Pulse Resp BP Pulse Ox 97.6 F 82 16 163/92 98 03/08/18 21:32 03/08/18 21:32 03/08/18 21:32 03/08/18 21:32 03/08/18 21:32 - General physical appearance well developed, well nourished, no distress - Eyes PERRL, normal ocular movement - ENT normal mucosa, normocephalic - Neck trachea midline - Respiratory normal expansion, normal respiratory effort - Cardiovascular Cardiovascular exam: Present: RRR - Abdomen Abdomen general surgery: Present: bowel sounds present, soft, non tender - Rectum Rectum: Present: other (I/D site clean and dry, small amount serosang drainage, packing removed earlier) - Integumentary Integumentary general surgery: Present: no abnormal pigmentation - Neurologic Present: CN 2-12 grossly intact - Musculoskeletal Present: normal gait - Psychiatric Psychiatric general surgery: Present: A&Ox3, speech is normal - Hospital Course Hospital course: Ms. Chew is a 37 year old female with a history of recurrent perirectal abscess. presented to ED with a day history of perirectal pain. CT showed right posterior lateral perirectal phlegmon. She was admitted for antibiotic therapy. After several days the area developed into a drainable abscess and she was taken to the OR for rectal exam under anesthesia and I/D perirectal abscess on . She was discharged home the following day in stable condition with augmentin, percocet and colace. She had a GI consult for work up for Crohns while in hospital and will follow up with GI as outpatient. She was discharged home in stable condition - Time Spent with Patient Total time spent providing and/or coordinating discharge services: - Discharge Medications Prescriptions: Oxycodone HCl/Acetaminophen [Percocet 5-325 mg Tablet] 1 each PO Q4HR 6 Days # 30 tablet Amoxicillin/Clavulanate [Augmentin] 875 mg PO BIDWM #18 tablet Docusate [Colace] 100 mg PO BID #30 capsule Home Medications: Albuterol Sulfate [Proair Hfa] 2 puff IH Q6H PRN 03/09/18 [History] Aspirin Enteric Coated [Aspirin EC] 81 mg PO DAILY 03/09/18 [History] Beclomethasone Diprop 80mcg [QVAR 80 mcg] 1 puff IH BID 03/09/18 [History] Carvedilol [Coreg] 6.25 mg PO DAILY 03/09/18 [History] Cyclobenzaprine [Flexeril] 10 mg PO BID PRN 03/09/18 [History] Hydrochlorothiazide [Microzide] 12.5 mg PO DAILY 03/09/18 [History] Ranitidine HCl [Acid Trimmer Tailer] 150 mg PO DAILY 03/09/18 [History] diazePAM [Valium] 2 mg PO BID 03/09/18 [History] Amoxicillin/Clavulanate [Augmentin] 875 mg PO BIDWM #18 tablet 03/12/18 [Rx] Docusate [Colace] 100 mg PO BID #30 capsule 03/12/18 [Rx] Oxycodone HCl/Acetaminophen [Percocet 5-325 mg Tablet] 1 each PO Q4HR 6 Days # 30 tablet 03/12/18 [Rx] Allergies/Adverse Reactions: 3 Allergy/AdvReac Type Severity Reaction Status Date / Time sulfamethoxazole AdvReac Hives Verified 03/09/18 10:19 [From Bactrim] trimethoprim [From Bactrim] AdvReac Hives Verified 03/09/18 10:19 Date of admission: 03/09/18 00:30 Primary care physician: Irais Soto CNP Consults: 03/09/18 08:46 Consult to Gastroenterology [CONS] Routine Consulting Provider: Gastroenterology Bernice Reason for Consult: Recurrent perirectal fistulas. Concern for possible Crohn 's that was not present on colonoscopy path. Time Notified: 08:47 Call Completed: Yes Discharging clinician: Angelia Sosa Labs on day of discharge: Labs from last 24 hours 03/12/18 03/12/18 03/12/18 11:47 08:24 08:24 WBC 7.5 RBC 4.27 Hgb 13.9 D Hct 38.1 MCV 89.2 MCH 32.6 MCHC 36.5 H RDW 12.7 Plt Count 282 MPV 10.4 Immature Gran % 0.7 Seg Neutrophils % 53.3 Lymphocytes % 34.9 Monocytes % 7.2 Eosinophils % 3.2 Basophils % 0.7 Neutrophils # 4.0 Lymphocytes # 2.6 Monocytes # 0.5 Eosinophils # 0.2 Basophils # 0.1 Sodium 136 Potassium 4.0 Chloride 105 Carbon Dioxide 24 BUN 10 Creatinine 0.63 Est GFR ( Amer) > 60 Est GFR (Non-Af Amer) > 60 BUN/Creatinine Ratio 16 Glucose 118 H POC Glucose 117 H Calculated Osmolality 282 Calcium 9.3 03/12/18 05:48 WBC RBC Hgb Hct MCV MCH MCHC RDW Plt Count MPV Immature Gran % Seg Neutrophils % Lymphocytes % Monocytes % Eosinophils % Basophils % Neutrophils # Lymphocytes # Monocytes # Eosinophils # Basophils # Sodium Potassium Chloride Carbon Dioxide BUN Creatinine Est GFR ( Amer) Est GFR (Non-Af Amer) BUN/Creatinine Ratio Glucose POC Glucose 140 H Calculated Osmolality Calcium - Impressions ITS Impressions Pelvis MRI 03/09/18 11:20 IMPRESSION: Perianal abscess measuring 15 x 14 x 14 mm in size with perianal fistula. Surrounding inflammatory changes consistent with surrounding cellulitis. Mildly prominent right inguinal lymph node suggesting a reactive lymph node. D/ / 03/09/2018 13:59:27 Abhishek Tucker MD / [facility] Interpreting Provider: Abhishek Tucker MD - Patient Status Disposition: Home, Self-Care Condition: Good Overall status at discharge: patient is progressing back to baseline - Discharge Instructions Follow Up With: Irais Soto CNP [Primary Care Provider] - Rodri Ambrosio MD [Partnered Physician] - Yohana Olivo CNP [Advanced Practice Nurse] - (need appt for 2 weeks after I/ D perirectal abscess) Additional Instructions: No driving until off narcotics for 24 hours. Take her Colace 100 mg by mouth twice a day. If problems with constipation can get magnesium citrate from the drugstore and take 100 mL and weight 4 hours, if no results take another 100 mL and if no results by the next day take the last 100 mL Perform sitz baths 3 times a day and after every bowel movement, washing with soap and water, either with the plastic sitz bath device on the toilet, in the bathtub, or in the shower. take stool softeners while taking narcotics If you experience any severe perianal or pelvic or abdominal pain, fevers, inability to urinate, bleeding please call the office or go to the ER - Diet and Activity Activity: increase activity as tolerated Diet: advance to your usual diet <Yohana Olivo - Last Filed: 03/13/18 08:50> Orders not resulted at time of discharge: Pending orders 03/12/18 13:10 Culture,Anaerobic [RM] Routine Culture,Wound [RM] Routine Date of Encounter: 03/13/18 - Discharge Diagnosis (1) Martha-rectal abscess Priority: Primary Status: Acute (2) Urinary tract infection Priority: Secondary Status: Acute Qualifiers: Urinary tract infection type: site unspecified Hematuria presence: without hematuria Qualified Code(s): N39.0 - Urinary tract infection, site not specified (3) HTN (hypertension) Priority: Secondary Status: Chronic Qualifiers: Hypertension type: essential hypertension Qualified Code(s): I10 - Essential (primary) hypertension General Surgery Exam Initial Vital Signs Temp Pulse Resp BP Pulse Ox 97.6 F 82 16 163/92 98 03/08/18 21:32 03/08/18 21:32 03/08/18 21:32 03/08/18 21:32 03/08/18 21:32 Vital Signs Temp Pulse Resp BP Pulse Ox 03/13/18 06:48 97.6 F 66 15 132/77 97 03/13/18 00:30 97.4 F L 74 16 96/57 95 03/12/18 19:46 17 97 03/12/18 17:30 98.5 F 72 12 117/78 97 03/12/18 14:25 98.1 F 75 12 105/74 03/12/18 13:36 97.1 F L 52 13 99/74 94 03/12/18 13:26 64 12 104/64 97 03/12/18 13:16 54 13 98/62 95 03/12/18 13:06 97.4 F L 67 16 98/57 93 03/12/18 12:30 97.6 F 56 16 109/71 96 03/12/18 10:59 97.6 F 56 16 109/71 96 Intake and Output 03/12/18 03/13/18 03/13/18 23:59 07:59 15:59 Intake Total 200 / 200 200 / 200 Output Total 0 / 0 Balance 200 / 200 200 / 200 Intake: IV Fluids 200 / 200 Zosyn 3.375 GM In 0.9 % Sodium 200 / 200 Chloride (Mini-Bag +) 100 ML @ 25 mls/hr IVPB Q8HR [facility] Rx#: [id number] Oral 200 / 200 0 / 0 Output: Urine 0 / 0 Other: Meal Dinner Percent of Meal Consumed 100% # Voids 1 Weight 90 kg Patient Weight 03/13/18 23:59 Weight 90 kg VITAL SIGNS: Reviewed. See [facility] GENERAL: In no apparent distress. HEENT: Normocephalic, atraumatic, pupils are equal and reactive, extraocular motions intact, oropharynx is pink and moist, there is no neck adenopathy or JVD noted. CHEST/RESPIRATORY: The thorax is free from signs of trauma. Lung sounds: clear to auscultation, normal respiratory effort CARDIAC: Regular rate and rhythm. Normal S1 and S2, without murmurs, gallops, or rubs. VASCULAR: No Edema. 2+ peripheral pulses. ABDOMEN: soft, nontender, active bowel sounds INCISION AND DRAINAGE SITE: Cellulitis greatly improved. moderate amount of SS drainage noted. MUSCULOSKELETAL: Good range of motion of all major joints. Extremities without clubbing, cyanosis or edema. NEUROLOGIC EXAM: Alert and oriented x 3. Speech normal. Follows commands. PSYCHIATRIC: Mood normal. SKIN: No rash or lesions. - Hospital Course Hospital course: No changes to d/c summary as above noted on date of d/c - Time Spent with Patient Total time spent providing and/or coordinating discharge services: Date of admission: 03/09/18 00:30 Primary care physician: Irais Soto CNP Consults: 03/09/18 08:46 Consult to Gastroenterology [CONS] Routine Consulting Provider: [facility] Bernice Reason for Consult: Recurrent perirectal fistulas. Concern for possible Crohn 's that was not present on colonoscopy path. Time Notified: 08:47 Call Completed: Yes Discharging clinician: Angelia Olivo) Anticipated date of discharge: 03/13/18 Labs on day of discharge: Labs from last 24 hours 03/12/18 03/12/18 03/12/18 11:47 08:24 08:24 WBC 7.5 RBC 4.27 Hgb 13.9 D Hct 38.1 MCV 89.2 MCH 32.6 MCHC 36.5 H RDW 12.7 Plt Count 282 MPV 10.4 Immature Gran % 0.7 Seg Neutrophils % 53.3 Lymphocytes % 34.9 Monocytes % 7.2 Eosinophils % 3.2 Basophils % 0.7 Neutrophils # 4.0 Lymphocytes # 2.6 Monocytes # 0.5 Eosinophils # 0.2 Basophils # 0.1 Sodium 136 Potassium 4.0 Chloride 105 Carbon Dioxide 24 BUN 10 Creatinine 0.63 Est GFR ( Amer) > 60 Est GFR (Non-Af Amer) > 60 BUN/Creatinine Ratio 16 Glucose 118 H POC Glucose 117 H Calculated Osmolality 282 Calcium 9.3 ANCA IgG Inflammatory Bowel Dis IBD Interpretation S.cerevisiae IgG Ab S.cerevisiae IgA Ab 03/09/18 12:15 WBC RBC Hgb Hct MCV MCH MCHC RDW Plt Count MPV Immature Gran % Seg Neutrophils % Lymphocytes % Monocytes % Eosinophils % Basophils % Neutrophils # Lymphocytes # Monocytes # Eosinophils # Basophils # Sodium Potassium Chloride Carbon Dioxide BUN Creatinine Est GFR ( Amer) Est GFR (Non-Af Amer) BUN/Creatinine Ratio Glucose POC Glucose Calculated Osmolality Calcium ANCA IgG <1:20 Inflammatory Bowel Dis SEE NOTE IBD Interpretation SEE NOTE S.cerevisiae IgG Ab 14.3 S.cerevisiae IgA Ab 7.9 - Impressions ITS Impressions Pelvis MRI 03/09/18 11:20 IMPRESSION: Perianal abscess measuring 15 x 14 x 14 mm in size with perianal fistula. Surrounding inflammatory changes consistent with surrounding cellulitis. Mildly prominent right inguinal lymph node suggesting a reactive lymph node. D/ / 03/09/2018 13:59:27 Abhishek Tucker MD / [facility] Interpreting Provider: Abhishek Tucker MD - Patient Status Functional capacity at discharge: independent ambulation Overall status at discharge: patient is progressing back to baseline - Diet and Activity Activity: increase activity as tolerated Diet: advance to your usual diet
[2018-03-12] MEDS ORDERED: Ringers Solution, Lactated 1,000 ML ONE (13:25)
--- NOTE | 2018-03-12 13:46 | Anesthesia Evaluation Post Op ---
Date of Encounter: 03/12/18 Time of Encounter: 13:45 - Vital Signs Vital Signs: Vital Signs/O2 Sat, Most Current Temp Pulse Resp BP Pulse Ox 97.1 F L 52 13 99/74 94 03/12/18 13:36 03/12/18 13:36 03/12/18 13:36 03/12/18 13:36 03/12/18 13:36 - Lungs Lungs: Clear Ascult./Percussion - Airway Airway: Non-obstructed - Cardiovascular Regular Rate - Mental Status Mental Status: Alert & Oriented, Answers Appropriately - Pain Pain Scale: 6 Pain Scale used: Numeric (1 - 10) - Nausea Vomiting Nausea Vomiting: Not Present - Hydration Hydration: Ice chips, Has not voided - Discharge PostOp Status: Transfer Patient to floor
[2018-03-12] MEDS ORDERED: *HR* Promethazine 25 MG/ML VIAL IVP PRN (14:08)
[2018-03-12] MEDS ORDERED: Ondansetron 4 MG/2 ML VIAL IVP PRN (14:08)
[2018-03-12] MEDS ORDERED: Naloxone 0.4 MG/ML INJ IVP PRN (14:08)
[2018-03-12] MEDS: OXYCODONE Oral CONC 10 MG/0.5 ML ORAL.SYG SL PRN ×2 (16:48→23:55)
[2018-03-12] MEDS: hydroCHLOROthiazide 25 MG TABLET PO SCH (20:46)
[2018-03-12] MEDS: diazePAM 2 MG TABLET PO PRN (23:56)
[2018-03-13] MEDS: Piperacillin/Tazobactam 3.375 GM in 0.9 % Sodium Chloride Mini Bag 100 ML IVPB SCH ×2 (00:12→09:07)
[2018-03-13] MEDS: OXYCODONE Oral CONC 10 MG/0.5 ML ORAL.SYG SL PRN (05:54)
[2018-03-13] MEDS: diazePAM 2 MG TABLET PO PRN (06:16)
[2018-03-13 06:58] VITALS: BP 132/77
[2018-03-13] MEDS: Beclomethasone 80mcg MDI IH SCH (07:29)
[2018-03-13 08:13] LABS: Saccharomyces cerevisiae IgA 7.9 Units (0.0-24.9)
[2018-03-13] MEDS ORDERED: Famotidine 20 MG TABLET PO SCH (09:00)
[2018-03-13] MEDS: *HR* OxyCODONE/APAP 7.5/325 TABLET PO PRN (09:14)
== END 2018-03-13 10:40 | disposition home or self-care (01) ==
LOC: 3ANU 21:29 → EMEROO 21:29 → 3ANU 03-09 00:48
PROVIDERS: ADMIT Surgery; ATTEND Surgery